=== PATIENT | female | born 1990 | race Caucasian/White ===

== ENCOUNTER 2024-09-28 13:46 | Outpatient (OUT) | payer OTHER, SELFPAY ==
--- OUTSIDE RECORDS SUMMARY | 2008-06-03 04:30 | XMS_ITS | Continuity of Care Document ---
Author Organization [facility] Address [address] [place] [address] Phone Care Team Providers Care Manager Recruiting Name Role Phone Unavailable Unavailable Unavailable Procedures Procedure Date OFFICE/OUTPATIENT VISIT, EST URINE TEST OFFICE/OUTPATIENT VISIT, EST URINE TEST Advance Directives Directive Yes / No Effective Date File Name No Information Encounters Encounter Description Practice Location Reason(s) For Visit Diagnoses Date Provider Providers Copied on Encounter OFFICE/OUTPAT IENT VISIT, EST [facility], [address] [place], [place], [id number], [place] tel:[phone] [facility] No Information No Information Family History Family Member Type Diagnosis Age At Onset No Information Payers Payer name Insurance type Covered libertarian ID Authoriza tion(s) No Information Social History Type Description Quantity Date Captured Comments Sex Female Smoking Status No Information Sexual Orientation Straight or heterosexual Gender Identity Female Chief Complaint And Reason For Visit No Information Reason For Referral Reason For Referral No Information History Of Present Illness Encounter Date Complaint History Of Prese nt Illness No Information Functional Status Date Functional Assessmen t No Information Instructions Date Instruction Additional Infor mation No Information Assessments Type Assessment Date No Information Patient Care Teams Name Effective Dates (start - stop) Status Members No Information
--- OUTSIDE RECORDS SUMMARY | 2024-09-14 10:00 | XMS_ITS | Encounter Summary ---
Author Organization [employer] [facility] Address [id number] [address] [place] [address] Care Team Providers Care Clinic Charge Nurse Name Role Phone Florin Vazquez DO Primary Care Provider [phone] Encounter Details Date Type Department Care Team (Latest Contact Info) Description 09/14/2024 10:00 AM EDT Visit [facility] [address] [place] [address] Amy Cates APRN-CNM [address] [facility] [place] [address] Routine follow-up (Primary Dx); S/P repeat low transverse ; Status post bilateral salpingectomy; Bilateral leg edema Social History Tobacco Use Types Packs/Day Years Used Date Smoking Tobacco: Former Cigarettes Q uit: 05/30/2024 Smokeless Tobacco: Never Alcohol Use Standard Drinks/Week Comments Not Currently 0 (1 standard drink = 0.6 oz pur e alcohol) [facility] Utilities Answer Date Recorded In the past 12 months has [employer] electric, gas, oil, or water company threatened to shut off services in your home? No 09/07/2024 Social Connection and Isolation Panel [NHANES] A nswer Date Recorded In a typical week, how many times do you talk on the phone with family, friends, or neighbors? Twice a week 09/07/2024 How often do you get together with friends or re latives? Twice a week 09/07/2024 How often do you attend holiness or orthodox serv ices? Never 09/07/2024 Do you belong to any clubs o r organizations such as holiness groups, unions, fraternal or athletic groups, or school groups? No 09/07/2024 How often do you attend meet ings of the clubs or organizations you belong to? Never 09/07/2024 Are you , , di vorced, , never , or living with a partner? Never 09/07/2024 AUDIT-C Answer Date Recorded Q1: How often do you have a drink containing alcohol? Never 08/31/2024 Q2: How many drinks containi ng alcohol do you have on a typical day when you are drinking? Patient does not drink Q3: How often do you have si x or more drinks on one occasion? Never 08/31/2024 Overall Financial Resource Strain (CARDIA) Answe r Date Recorded How hard is it for you to pa y for the very basics like food, housing, medical care, and heating? Not very hard 09/07/2024 PHQ-2 Answer Date Recorded Total Score 0 09/07/2024 [facility] - Occupational Stress Questionnaire Answer Date Recorded Do you feel stress - tense, restless, nervous, or anxious, or unable to sleep at night because your mind is troubled all the time - these days? To some extent 09/07/2024 Exercise Vital Sign Answer Date Recorde d On average, how many days pe r week do you engage in moderate to strenuous exercise (like a brisk walk)? 0 days 09/07/2024 On average, how many minutes do you engage in exercise at this level? 0 min 09/07/2024 PRAPARE - Transportation Answer Date Re corded In the past 12 months, has l ack of transportation kept you from medical appointments or from getting medications? No 08/23 In the past 12 months, has l ack of transportation kept you from meetings, work, or from getting things needed for daily living? No 09/07/2024 [place] Depression Scale Answer Date Recorded [place] Depression Scale Total 4 09/14/2024 The thought of harming myself has occurred to me . Never 09/14/2024 Housing Instability Answer Date Recorde d Are you worried or concerned that in the next two months you may not have stable housing that you own, rent or stay in as a part of a household? No 09/07/2024 Childcare Answer Date Recorded Do problems getting child ca re make it difficult for you to work or study? No 09/07/2024 Employment Answer Date Recorded Do you need help finding a [facility] career center and/or a training program? No 09/07/2024 Hunger Screening Answer Date Recorded Within the past 12 months we worried whether our food would run out before we got money to buy more. Never True 09/14/2024 Within the past 12 months th e food we bought just didn't last and we didn't have money to get more. Never True 09/14/2024 Purpose - Life Answer Date Recorded I have a purpose and direction in my life. Agree 09/07/2024 Comments No Sex and Gender Information Value Date Recorded Sex Assigned at Not on file Legal Sex Female 1:57 PM EST Gender Identity Not on file Sexual Orientation Not on file documented as of this encounter Last Filed Vital Signs Vital Sign Reading Time Taken Comments Blood Pressure 120/68 09/14/2024 10:15 AM EDT Pulse - - Temperature - - Respiratory Rate - - Oxygen Saturation - - Inhaled Oxygen Concentration - - Weight 64.9 kg (143 lb) 09/14/2024 10:15 AM EDT Height 165.1 cm (5' 5 ) 09/14/2024 10:15 AM EDT Body Mass Index 23.8 09/14/2024 10:15 AM EDT documented in this encounter Progress Notes * LONNIE Azevedo - 09/14/2024 10:00 AM EDT Visit Subjective: HPI Jeannine Johnson is a 34 y.o. female who presents for a 1 week visit and incision check. She delivery Baby Girl Martha via repeat low transverse section with bilateral salpingectomy on 09/07/[address] Solorio. She reports that overall she is doing well but has noticed an increased amount of lower leg swelling. States that the swelling is worse the longer she is up and about. Deneis headache, visual changes and epigastric pain. She reports her mood is happy. No homicidal or suicidal ideations. EPDS: 4 She is bottlefeeding every 3-4 hours. Denies breast complaints today. She reports that her lochia light, rubra and without clots. She has not resumed intercourse. The following portions of the patient's history were reviewed and updated as appropriate: allergies, current medications, past family history, past medical history, past social history, past surgicalhistory and problem list. Review of Systems Pertinent items are noted in HPI. Objective: BP 120/68 Ht 165.1 cm (5' 5 ) Wt 64.9 kg (143 lb) LMP (LMP Unknown) No BMI 23.80 kg/m?? General: alert, appears stated age and cooperative Cardiovascular: RRR Respiratory: Bilateral lungs clear to ascultation, no rhonchi, rales or wheezes Breasts: exam deferred Abdomen soft, non-tender; bowel sounds normal; no masses Incision: healing well without erythema/drainage/discharge Lower extremities: +2 edema of bilateral ankles and feet. No pain or tenderness noted. Bilateral pedal pulses palpated. Assessment: Diagnoses and all orders for this visit: Routine follow-up S/P repeat low transverse Status post bilateral salpingectomy Bilateral leg edema Plan: Discussed adequate water intake (6-8 bottles of water daily) and compression stockings to help reduce lower leg edema No issues with blood pressure but they have a cuff at home. Discussed checking daily and reporting BPs >/=140/90 to office. Continue plan Continue to abstain from intercourse until seen at 6 wk visit. Continue to monitor mood changes. Continue to monitor for s/s of infection. Return for PP care in 1 week to follow up with lower leg edema or sooner if worsening despite adequate water and compression stockings. - LONNIE Azevedo 09/14/24 10:44 AM LONNIE Azevedo 09/14/24 1044 documented in this encounter Plan of Treatment Upcoming Encounters Date Type Department Care Team (Late st Contact Info) Description 10/18/2024 1:15 PM EDT Visit [facility] [address] [place] [id number] Lorna Murray, PLACEMENT DIRECTOR-VEHICLE CALIBRATION ENGINEER [address] [facility] [address] [place] [address] documented as of this encounter Visit Diagnoses Diagnosis Routine follow-up- Primary S/P repeat low transverse Status post bilateral salpingectomy Bilateral leg edema Edema documented in this encounter Additional Health Concerns Assessment Noted Time PHQ-9 Depression Total Score: 0 09/08/19 11:42 AM EDT documented as of this encounter Care Teams Clinic Charge Nurse Relationship Specialty Start Date End Date Florin Vazquez DO [address] [place] [address] [place] [address] [place] [address] PCP - General Family Medicine 07/26/24 documented as of this encounter
--- OUTSIDE RECORDS SUMMARY | 2024-09-20 15:00 | XMS_ITS | Encounter Summary ---
Author Organization [facility] Address [id number] [address] [place] [address] Care Team Providers Care Triage Licensed Practical Nurse Name Role Phone Florin Vazquez DO Primary Care Provider Reason for Visit * Reason Comments Care PP 13 days. Pt had i ncreased swelling at last PP visit, Minimal swelling today. Pt denies pain or any concerns, mild vag bleeding. Encounter Details Date Type Department Care Team (Late st Contact Info) Description 09/20/2024 3:00 PM EDT Visit [facility] [address] [place] [address] Lorna Murray, SENIOR SOFTWARE DEVELOPER-PHYSICIAN ASSISTANT CERTIFIED [address] [facility] [address] [place], [place] [id number] care following delivery (Primary Dx) Social History Tobacco Use Types Packs/Day Years Used Date Smoking Tobacco: Former Cigarettes Q uit: 05/30/2024 Smokeless Tobacco: Never Alcohol Use Standard Drinks/Week Comments Not Currently 0 (1 standard drink = 0.6 oz pur e alcohol) [facility] Utilities Answer Date Recorded In the past 12 months has e electric, gas, oil, or water company threatened [...] week 09/07/2024 How often do you attend roman catholic or hinduism serv ices? Never 09/07/2024 Do you belong to any clubs o r organizations such as roman catholic groups, unions, fraternal or athletic groups, or [...] Answer Date Recorded Total Score 0 09/07/2024 [facility] of Occupat ional Health - Occupational Stress [...] things needed for daily living? No 09/07/2024 [place] Depression Scale Answer Date Recorded [place] Depression Scale Total 3 09/20/2024 The thought of harming myself has occurred to me . Never 09/20/2024 Housing Instability Answer Date Recorde d Are [...] Recorded Do you need help finding a [facility] career center and/or a training program? No 09/07/2024 Hunger Screening Answer Date Recorded Within the past 12 months we worried whether our food would run out before we got money to buy more. Never True 09/20/2024 Within the past 12 months th e food we bought just didn't last and we didn't have money to get more. Never True 09/20/2024 Purpose - Life Answer Date Recorded I [...] Sign Reading Time Taken Comments Blood Pressure 116/70 09/20/2024 3:10 PM EDT Pulse - - Temperature - - Respiratory Rate - - Oxygen Saturation - - Inhaled Oxygen Concentration - - Weight 62.1 kg (137 lb) 09/20/2024 3:10 PM EDT Height 162.6 cm (5' 4 ) 09/20/2024 3:10 PM EDT Body Mass Index 23.52 09/20/2024 3:10 PM EDT documented in this encounter Progress Notes * Lorna Murray APRN-ALENA - 09/20/2024 3:00 PM EDT Images from the original note were not included. office visit 09/20/2024 Subjective: Jeannine Johnson is a 34 y.o. female who presents for a follow up visit. Jeannine is doing very well and her swelling has resolved. She has checked her BP at home and it has been normal.She has no breast concerns, eating and drinking well, normal bowel function. She denies pain and her bleeding is light. She delivered via repeat low transverse delivery on 09/07/2024 at 39w1d of Female . Desired contraception method: Had salpingectomy . depression screening: negative. EPDS = 3 The following portions of the patient's history were reviewed and updated as appropriate: allergies, current medications, past family history, past medical history, past social history, past surgicalhistory, problem list, and medication reconciliation was completed including current medication andpost discharge medication. Review of Systems Pertinent items are noted in HPI. Objective: BP 116/70 Ht 162.6 cm (5' 4 ) Wt 62.1 kg (137 lb) LMP (LMP Unknown) No BMI 23.52 kg/m?? Physical Exam Vitals and nursing note reviewed. Constitutional: General: She is not in acute distress. Appearance: Normal appearance. She is not ill-appearing. HENT: Head: Normocephalic and atraumatic. Nose: No rhinorrhea. Eyes: Extraocular Movements: Extraocular movements intact. Pulmonary: Effort: Pulmonary effort is normal. No respiratory distress. Abdominal: General: There is no distension. Palpations: Abdomen is soft. Tenderness: There is no abdominal tenderness. There is no guarding. Genitourinary: General: Normal vulva. Musculoskeletal: General: Normal range of motion. Cervical back: Normal range of motion. Right lower leg: No edema. Left lower leg: No edema. Skin: General: Skin is warm and dry. Neurological: General: No focal deficit present. Mental Status: She is alert. Psychiatric: Mood and Affect: Mood normal. Behavior: Behavior normal. Thought Content: Thought content normal. Judgment: Judgment normal. Lab Results Component Value Date HGB 8.2 (L) 09/08/2024 Assessment and Plan: 34 y.o. female s/p 1. care following delivery (Primary) Continue pelvic rest and lifting restrictions Reviewed warning signs RTO in 4 weeks, sooner if needed MADHAVI Lozano 09/20/24 1543 documented in this encounter Plan of Treatment Upcoming Encounters Date Type Department Care Team (Late st Contact Info) Description 10/18/2024 1:15 PM EDT Visit [facility] [address] [place] [phone] Lorna Murray, SENIOR SOFTWARE DEVELOPER-PHYSICIAN ASSISTANT CERTIFIED [address] [facility] [address] [place], [place] [phone] documented as of this encounter Visit Diagnoses Diagnosis care following delivery- Primary documented in this encounter Additional Health Concerns Assessment Noted Time PHQ-9 Depression Total Score: 0 09/08/19 11:42 AM EDT documented as of this encounter Care Teams Triage Licensed Practical Nurse Relationship Specialty Start Date End Date Florin Vazquez DO [address] [place] [address] [place] [address] PCP - General Family Medicine 07/26/24 documented as of this encounter
--- OUTSIDE RECORDS SUMMARY | 2024-09-28 13:49 | XMS_ITS | Encounter Summary ---
Author Organization [employer] [facility] [employer] Address [id number] [address] [place] [address] Care Team Providers Care Finisher Hand Name Role Phone Florin Vazquez Dia WALTERS Primary Care Provider [phone] Encounter Details Date Type Department Care Team (Late Contact Info) Description 07/03/2020 Orders Only [facility] Family Medicine [address] [place] [id number] Bertha Gusman, CONSULTANT EDUCATION-DISCHARGE PLANNER [address] [place] [address] Social History Tobacco Use Types Packs/Day Years Used Date Smoking Tobacco: Never Assessed Childcare Answer Date Recorded Childcare Unknown 07/02/2020 Employment Answer Date Recorded Employment Unknown 07/02/2020 Purpose - Life Answer Date Recorded Purpose and direction in life Unknown Comments Unknown Sex and Gender Information Value Date Recorded Sex Assigned at Not on file Legal Sex Female 1:57 PM EST Gender Identity Not on file Sexual Orientation Not on file documented as of this encounter Plan of Treatment Upcoming Encounters Date Type Department Care Team (Late st Contact Info) Description 10/18/2024 1:15 PM EDT Visit [facility] [address] [place] [phone] Lorna Murray, CONSULTANT EDUCATION-DISCHARGE PLANNER [address] [place] [address] documented as of this encounter Visit Diagnoses Not on filedocumented in this encounter Care Teams Finisher Hand Relationship Specialty Start Date End Date Florin Vazquez DO [address] [place] [address] PCP - General Family Medicine 07/26/24 documented as of this encounter
--- OUTSIDE RECORDS SUMMARY | 2024-09-28 13:49 | XMS_ITS | Clinical Summary ---
Author Organization [facility] Address [address] [place] [address] Care Team Providers Care Human Resources Communications Manager Name Role Phone Florin Vazquez DO Unavailable Florin Vazquez DO Primary Care Provider [phone] Allergies No known active allergies Medications Aspirin-Acetami nophen-Caffeine (EXCEDRIN MIGRAINE) 250-250-65 mg per tablet Take 1 tablet by mouth every 6 hours as needed. Active nortriptyline (PAMELOR) 10 mg capsule Take 1 capsule by mouth daily at bedtime. 30 capsule 5 08/06/2016 Active Active Problems Problem Noted Date Diagnosed Date Tobacco smoking complicating in third trimester 05/27/2016 IUGR (intrauterine growth re striction) affecting care of mother 05/27/2016 Social History Tobacco Use Types Packs/Day Years Used Date Smoking Tobacco: Former Cigarettes Q uit: 05/26/2016 Tobacco Cessation:Ready to Q uit: No; Counseling Given: No Alcohol Use Standard Drinks/Week Comments No 0 (1 standard drink = 0.6 oz pur e alcohol) Comments Unknown Sex and Gender Information Value Date Recorded Sex Assigned at Not on file Legal Sex Female 9:22 AM EST Gender Identity Not on file Sexual Orientation Not on file Last Filed Vital Signs Vital Sign Reading Time Taken Comments Blood Pressure 127/106 08/06/2016 9:21 AM EDT Pulse 70 08/06/2016 9:21 AM EDT Temperature - - Respiratory Rate - - Oxygen Saturation - - Inhaled Oxygen Concentration - - Weight 58.5 kg (129 lb) 08/06/2016 9:21 AM EDT Height 157.5 cm (5' 2 ) 08/06/2016 9:21 AM EDT Body Mass Index 23.59 08/06/2016 9:21 AM EDT Plan of Treatment Health Maintenance Due Date Last Done Comments Anxiety Screening 2008 Depression Screening 2008 HIV Screening 2008 Hepatitis C Screening 2008 DTaP,Tdap,Td Vaccine (1 - Tdap) 2009 Hepatitis B Vaccine (1 of 3 - 19+ 3-dose series) 05/11 Cervical Cancer Screening 2011 Covid-19 Vaccine ( - 2023- season) 2023 Influenza Vaccine (Season Ended) 2024 Insurance [employer] ACC[employer] PPO Care Teams Human Resources Communications Manager Relationship Specialty Start Date End Date Florin Vazquez DO [address] [place] [address] PCP - General Family Medicine 07/28/16 Florin Vazquez DO [address] [place] [address] Family Medicine 07/15/16
--- OUTSIDE RECORDS SUMMARY | 2024-09-28 13:50 | XMS_ITS | Encounter Summary ---
Author Organization [employer] [facility] Address [id number] [address] [place] [address] Care Team Providers Care Gunstock Spray Unit Adjuster Name Role Phone Florin Vazquez DO Primary Care Provider [phone] Encounter Details Date Type Department Care Team (Latest Contact Info) Description 09/20/2024 Travel Social History Tobacco Use Types Packs/Day Years Used Date Smoking Tobacco: Former Cigarettes Q uit: 05/30/2024 Smokeless Tobacco: Never Alcohol Use Standard Drinks/Week Comments Not Currently 0 (1 standard drink = 0.6 oz pur e alcohol) [facility] Utilities Answer Date Recorded In the past 12 months has [employer] electric, gas, oil, or water company threatened [...] week 09/07/2024 How often do you attend confucianist or religion serv ices? Never 09/07/2024 Do you belong to any clubs o r organizations such as confucianist groups, unions, fraternal or athletic groups, or [...] Answer Date Recorded Total Score 0 09/07/2024 [facility] of Occupat ional Health - Occupational Stress [...] things needed for daily living? No 09/07/2024 [place] Depression Scale Answer Date Recorded [place] Depression Scale Total 3 09/20/2024 The thought [...] Recorded Do you need help finding a [facility] and/or a training program? No [...] EDT Visit [facility] [address] [place] [phone] Lorna Murray, COPRA SAMPLER-AUDIO VISUAL PROJECT MANAGER [address] [facility] [address] [place], [place] [phone] documented as of this encounter Visit Diagnoses Not on filedocumented in this encounter Additional Health Concerns Assessment Noted Time PHQ-9 Depression Total Score: 0 09/08/19 11:42 AM EDT documented as of this encounter Care Teams Gunstock Spray Unit Adjuster Relationship Specialty Start Date End Date Florin Vazquez DO [address] [place] [address] [place] [address] PCP - General Family Medicine 07/26/24 documented as of this encounter
--- OUTSIDE RECORDS SUMMARY | 2024-09-28 13:50 | XMS_ITS | Encounter Summary ---
Author Organization [facility] Address [id number] [address] [place] [address] Care Team Providers Care Day Guard Name Role Phone Florin Vazquez DO Primary Care Provider [phone] Encounter Details Date Type Department Care Team (Latest Contact Info) Description 09/14/2024 Travel Social History Tobacco Use Types Packs/Day Years Used Date Smoking Tobacco: Former Cigarettes Q uit: 05/30/2024 Smokeless Tobacco: Never Alcohol Use Standard Drinks/Week Comments Not Currently 0 (1 standard drink = 0.6 oz pur e alcohol) [place] Utilities Answer Date Recorded In the past 12 months has [employer] electric, gas, oil, or water company threatened [...] week 09/07/2024 How often do you attend denominational or mandaeism serv ices? Never 09/07/2024 Do you belong to any clubs o r organizations such as denominational groups, unions, fraternal or athletic groups, or [...] Answer Date Recorded Total Score 0 09/07/2024 [facility] - Occupational Stress [...] things needed for daily living? No 09/07/2024 [place] Depression Scale Answer Date Recorded [place] Depression Scale Total 4 09/14/2024 The thought [...] Recorded Do you need help finding a [facility] and/or a training program? No [...] EDT Visit [facility] [address] [place] [id number] Lorna Murray, CUSHION PADDER-AD OPERATIONS SPECIALIST [id number] [facility] , [address] [place], [place] [id number] documented as of this encounter Visit Diagnoses Not on filedocumented in this encounter Additional Health Concerns Assessment Noted Time PHQ-9 Depression Total Score: 0 09/08/19 11:42 AM EDT documented as of this encounter Care Teams Day Guard Relationship Specialty Start Date End Date Florin Vazquez DO [address] [place] [address] [place] [address] PCP - General Family Medicine 07/26/24 documented as of this encounter
--- OUTSIDE RECORDS SUMMARY | 2024-09-28 13:50 | XMS_ITS | Clinical Summary ---
Author Organization [facility] Address [address] [place] [address] Care Team Providers Care Defense Attorney Name Role Phone Unavailable Primary Care Provider Unavailabl e Encounters Date Type Department Care Team Description 08/28/2024 Telephone [facility] [address] [place] [address] Mariza Ricci CNM from Last 3 Months Social History Tobacco Use Types Packs/Day Years Used Date Smoking Tobacco: Never Assessed Comments Unknown Sex and Gender Information Value Date Recorded Sex Assigned at Not on file Legal Sex Female 7:09 PM EDT Gender Identity Not on file Sexual Orientation Not on file Plan of Treatment Not on file
--- OUTSIDE RECORDS SUMMARY | 2024-09-28 13:50 | XMS_ITS | Clinical Summary ---
Author Organization [employer] [facility] Address [id number] [address] [place] [address] Care Team Providers Care Wood Gluer Name Role Phone Florin Vazquez DO Primary Care Provider [phone] Allergies No known active allergies Medications docusate sodium (COLACE) 100 mg capsuleIndicatio ns:Constipation, unspecified constipation type Take 1 capsule (100 mg total) by mouth in the morning and 1 capsule (100 mg total) before bedtime. Do all this for 30 days. 60 capsule 09/12/19 25 Active Additional Information Patient not taking.Reported on 09/20/2024 ferrous sulfate 325 (65 FE) MG tabletIndication s:Anemia, Take 1 tablet (325 mg total) by mouth in the morning and 1 tablet (325 mg total) in the evening. Take with meals. 60 tablet 09/12/19 25 Active vit no.124/iron/foli c ( VITAMIN ORAL) Take by mouth. Discontinu ed(Stop Taking at Discharge) docusate sodium (COLACE) 100 mg capsule Take 1 capsule (100 mg total) by mouth in the morning and 1 capsule (100 mg total) before bedtime. Do all this for 30 days. 60 capsule 09/11/19 25 025 Discontinu ed(Reorder ) ferrous sulfate 325 (65 FE) MG tablet Take 1 tablet (325 mg total) by mouth in the morning and 1 tablet (325 mg total) in the evening. Take with meals. 60 tablet 09/11/19 25 025 Discontinu ed(Reorder ) ibuprofen (MOTRIN) 800 mg tabletIndication s:Delivery of by section Take 1 tablet (800 mg total) by mouth every 8 (eight) hours as needed for pain for up to 10 days. 30 tablet 09/11/19 25 025 Discontinu ed(Reorder ) ibuprofen (MOTRIN) 800 mg tabletIndication s:Delivery of by section Take 1 tablet (800 mg total) by mouth every 8 (eight) hours as needed for pain for up to 10 days. 30 tablet 09/12/19 25 025 Additional Information Patient not taking.Reported on 09/20/2024 Active Problems Problem Noted Date Diagnosed Date Status post bilateral salpingectomy 09/14/2024 Resolved Problems Problem Noted Date Diagnosed Date Resolved Date H/O section 09/07/2024 Delivery of by section 09/07/2024 09/14/2024 Status post tubal ligation a t time of delivery, current hospitalization 09/07/20242024 Syncope 07/26/2024 09/14/2024 Overview (07/26/2024): Pt incarcerated. Fell and hit head on concrete Request for sterilization 07/26/2024 Incarceration 07/12/2024 09/10/2024 Hepatitis C virus infection in mother during 07/12/2024 09/10/2024 History of prior with IUGR 09/10/2024 History of delivery , currently 06/28/2024 09/10/2024 History of illicit drug use 06/28/2024 09/10/2024 Overview (06/28/2024): Meth, stopped in May 2024 when incarcerated. Late care 06/28/2024 Encounters Date Type Department Care Team Description 09/20/2024 3:00 PM EDT Visit [facility] [address] [place] [address] Lorna Murray, TRACK LAYING EQUIPMENT OPERATOR-FLAT OPTICAL ELEMENT MAKER care following delivery (Primary Dx) 09/20/2024 Travel 09/19/2024 Telephone [facility] Obstetric[facility]/Gynecol daksha [address] [place] [address] Paola Desai MA 09/14/2024 10:00 AM EDT Visit [facility]/Gynecol daksha [address] [place] [address] Amy Cates APRN-BRENDAM Routine follow-up (Primary Dx); S/P repeat low transverse ; Status post bilateral salpingectomy; Bilateral leg edema 09/14/2024 Travel 09/11/2024 Orders Only [facility] [address] [place] [address] Carlie Mac, TRACK LAYING EQUIPMENT OPERATOR-BRENDAM Anemia affecting , antepartum (Primary Dx); Delivery of by section; Anemia, ; Constipation, unspecified constipation type 09/07/2024 1:15 PM EDT Anesthesia Event [facility] [address] [place] [address] Franck Florez DO 09/07/2024 1:00 PM EDT - 09/07/2024 3:00 PM EDT Surgery [facility] [address] [place] [address] Danette Solorio MD REPEAT TUBAL LIGATION 09/07/2024 11:02 AM EDT - 09/10/2024 5:10 PM EDT Hospital Encounter [facility] [address] [place] [address] Danette Solorio MD Delivery of by section (Primary Dx); Late care; Hepatitis C virus infection in mother during ; History of prior with IUGR ; History of delivery, currently ; History of illicit drug use Discharge Disposition: Home 09/07/2024 Travel 09/06/2024 10:38 AM EDT - 09/06/2024 11:59 PM EDT Hospital Encounter [facility] - Ultrasound [address] [place] [address] Debra Jones APRN-FLAT OPTICAL ELEMENT MAKER Late care Discharge Disposition: Home 09/05/2024 1:00 PM EDT Routine [facility] [place] [address] [place] [address] Lorna Murray APRN-FLAT OPTICAL ELEMENT MAKER GA: 38w6d 09/05/2024 Travel 08/31/2024 11:12 AM EDT - 08/31/2024 12:57 PM EDT Hospital Encounter [facility] - LDRP [address] [facility] [facility] [address] Danette Solorio MD Late care; Hepatitis C virus infection in mother during ; History of prior with IUGR ; History of delivery, currently ; Incarceration; History of illicit drug use Discharge Disposition: Home 08/31/2024 10:45 AM EDT Routine [facility] [place] [address] [place] [address] Lorna Murray APRN-FLAT OPTICAL ELEMENT MAKER GA: 38w1d 08/31/2024 Travel 08/30/2024 10:23 AM EDT - 08/30/2024 11:59 PM EDT Hospital Encounter [facility] - Ultrasound [address] [place] [address] Debra Jones APRN-FLAT OPTICAL ELEMENT MAKER Late care Discharge Disposition: Home 08/30/2024 Travel 08/24/2024 1:30 PM EDT - 08/24/2024 11:59 PM EDT Hospital Encounter [facility] [address] [place] [address] Josue Camarillo MD History of prior with IUGR ; History of delivery, currently ; History of illicit drug use; Late care Discharge Disposition: Home 08/23/2024 10:42 AM EDT - 08/23/2024 11:59 PM EDT Hospital Encounter [facility] - Ultrasound [address] [place] [address] Debra Jones, TRACK LAYING EQUIPMENT OPERATOR-FLAT OPTICAL ELEMENT MAKER Late care Discharge Disposition: Home 08/23/2024 10:00 AM EDT Routine [facility] Obstetrics/[place] [address] Carlie Mac, TRACK LAYING EQUIPMENT OPERATOR-CN GA: 37w0d 08/23/2024 Travel 08/21/2024 3:47 PM EDT - 08/21/2024 5:40 PM EDT Hospital Encounter [facility] - [facility] [address] [place] [address] Danette Solorio MD Fries, Kathleen S, TRACK LAYING EQUIPMENT OPERATOR-BRENDA Late care; Hepatitis C virus infection in mother during ; History of prior with IUGR ; History of delivery, currently ; Incarceration; History of illicit drug use Discharge Disposition: Home 08/16/2024 10:20 AM EDT - 08/16/2024 11:59 PM EDT Hospital Encounter [facility] - Ultrasound [address] [place] [address] Debra Jones, TRACK LAYING EQUIPMENT OPERATOR-FLAT OPTICAL ELEMENT MAKER Late care Discharge Disposition: Home 08/15/2024 Telephone [facility]/[place] [address] Danette Solorio MD 08/14/2024 10:30 AM EDT Routine [facility] [address] Danette Solorio MD GA: 35w5d 08/14/2024 Travel 08/09/2024 10:00 AM EDT - 08/09/2024 11:59 PM EDT Hospital Encounter [facility] - Ultrasound [address] [place] [address] Debra Jones, TRACK LAYING EQUIPMENT OPERATOR-ALENA Late care Discharge Disposition: Home 08/09/2024 Travel 08/02/2024 11:00 AM EDT - 08/02/2024 11:59 PM EDT Hospital Encounter [facility] - Ultrasound [address] [place] [address] Debra Jones, TRACK LAYING EQUIPMENT OPERATOR-FLAT OPTICAL ELEMENT MAKER Late care Discharge Disposition: Home 08/02/2024 Travel 07/27/2024 Telephone [facility] Obstetrics/Gynecol ogjosefa [address] [place] [address] Alicia García LPN [facility] 07/26/2024 11:15 AM EDT Routine [facility] Obstetric[facility]/[place] [address] Lorna Murray, TRACK LAYING EQUIPMENT OPERATOR-FLAT OPTICAL ELEMENT MAKER GA: 33w0d 07/26/2024 10:28 AM EDT - 07/26/2024 11:59 PM EDT Hospital Encounter [facility] - Ultrasound [address] [place] [address] Debra Jones, TRACK LAYING EQUIPMENT OPERATOR-FLAT OPTICAL ELEMENT MAKER Late care Discharge Disposition: Home 07/26/2024 9:24 AM EDT - 07/26/2024 10:15 AM EDT Hospital Encounter [facility] [address] [place] [address] Isis Partida, TRACK LAYING EQUIPMENT OPERATOR-Simon Patterson MD Late care; Hepatitis C virus infection in mother during ; History of prior with IUGR ; History of delivery, currently ; Incarceration; History of illicit drug use Discharge Disposition: Home 07/26/2024 7:16 AM EDT - 07/26/2024 9:20 AM EDT Emergency [facility] - Emergency [address] [place] [address] Jaron Gaines, Syncope, unspecified syncope type (Primary Dx); Minor head injury, initial encounter Discharge Disposition: Home 07/26/2024 Travel 07/18/2024 8:45 AM EDT Office Visit Maternal- Medicine at [facility] [address] [place] [address] Josue Camarillo MD History of prior with IUGR (Primary Dx); History of delivery, currently ; History of illicit drug use; Late care; Incarceration; Hepatitis C virus infection in mother during 07/18/2024 7:20 AM EDT - 07/18/2024 11:59 PM EDT Hospital Encounter [facility] - [facility] Imaging [address] [place] [address] Second trimester ; History of IUGR (intrauterine growth retardation) and stillbirth, currently , second trimester; 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[facility]); Late care Discharge Disposition: Home 07/18/2024 Orders Only [facility]Gynecol daksha [address] [place] [address] Debra Jones, TRACK LAYING EQUIPMENT OPERATOR-[facility] History of prior with IUGR (Primary Dx); Late care; Hepatitis C virus infection in mother during 07/18/2024 Telephone [facility] Obstetric[facility]/Gynecol daksha [address] [place] [address] Tawana Angel RN 07/18/2024 Orders Only [facility]- Medicine at [facility] [address] [place] [address] Darlyn Santos, RN History of prior with IUGR (Primary Dx); History of delivery, currently ; History of illicit drug use; Late care 07/18/2024 Orders Only [facility] Obstetrics/Gynecol [place] [address] Tawana Angel RN Late care (Primary Dx) 07/18/2024 Travel 07/12/2024 11:21 AM EDT - 07/12/2024 11:59 PM EDT Hospital Encounter [facility] - Ultrasound [address] [place] [address] Debra Jones, VENKATA-ALENA Second trimester Discharge Disposition: Home 07/12/2024 10:45 AM EDT Routine [facility] Obstetrics/Gynecol ogjosefa [address] [place] [address] Debra Jones, VENKATA-ALENA GA: 31w0d 07/12/2024 Travel 06/28/2024 11:40 PM EST - 06/28/2024 11:59 PM EST Hospital Encounter [facility] [address] [facility] [address] [place] [address] Second trimester Discharge Disposition: Home 06/28/2024 12:20 PM EST - 06/28/2024 11:39 PM EST Hospital Encounter [facility] - Lab [address] [place] [address] Second trimester ; Cervical smear, as part of routine gynecological examination Discharge Disposition: Home 06/28/2024 11:00 AM EST Initial [facility]/Gynecol ogjosefa [address] [place] [address] Debra Jones, TRACK LAYING EQUIPMENT OPERATOR-FLAT OPTICAL ELEMENT MAKER GA: 29w0d 06/28/2024 Travel from Last 3 Months Immunizations Immunization Administration Dates Next Due DTP 1990,1990,1990 DTaP 12/28/1995,01/17/1992 HiB 09/06/1991,02/01/1991,1990 ,1990 MMR 12/28/1995,09/06/1991 OPV 12/28/1995,01/17/1992,1990 ,1990 Family History Medical History Relation Name Comments Breast cancer Maternal Grandmother Relation Name Status Comments Maternal Grandmother Social History Tobacco Use Types Packs/Day Years Used Date Smoking Tobacco: Former Cigarettes Q uit: 05/30/2024 Smokeless Tobacco: Never Tobacco Cessation:Counseling Given: Not Answered Alcohol Use Standard Drinks/Week Comments Not Currently 0 (1 standard drink = 0.6 oz pur e alcohol) [facility] Utilities Answer Date Recorded In the past [...] week 09/07/2024 How often do you attend jewish or congregational serv ices? Never 09/07/2024 Do you belong to any clubs o r organizations such as jewish groups, unions, fraternal or athletic groups, or [...] Answer Date Recorded Total Score 0 09/07/2024 [facility] [place] of Occupat ional Health - Occupational Stress [...] things needed for daily living? No 09/07/2024 Gomer Depression Scale Answer Date Recorded Gomer Depression Scale Total 3 09/20/2024 The thought [...] Recorded Do you need help finding a [facility] career center and/or a training program? No [...] Pressure 116/70 09/20/2024 3:10 PM EDT Pulse 79 09/10/2024 1:22 PM EDT Temperature 36.7 C (98 F) 09/10/2024 1:22 PM EDT Respiratory Rate 16 09/10/2024 1:22 PM EDT Oxygen Saturation 100% 09/08/2024 8:12 PM EDT Inhaled Oxygen Concentration - - Weight 62.1 kg (137 lb) 09/20/2024 3:10 PM EDT Height 162.6 cm (5' 4 ) 09/20/2024 3:10 PM EDT Body Mass Index 23.52 09/20/2024 3:10 PM EDT Plan of Treatment Upcoming Encounters Date Type Department Care Team (Late st Contact Info) Description 10/18/2024 1:15 PM EDT Visit [facility] Ob[facility]/Gynecology [address] [place] [phone] Lorna Murray, TRACK LAYING EQUIPMENT OPERATOR-FLAT OPTICAL ELEMENT MAKER [address] [facility] [address] [place] [address] Health Maintenance Due Date Last Done Comments DTaP,Tdap and Td Vaccines (6 - Tdap) 2001 12/28/1995, 01/17/1992, 1990, Additional history exists Influenza Vaccine 12/24/2024 Tobacco Screening 09/14/2025 09/14/2024 Adult BMI Screening 09/20/2025 09/20/2024 Depression Screening 09/20/2025 09/20/2024, 09/08/19 25 Pap Smear 06/29/2027 06/28/2024, 06/28/2024 Medical Devices Not on file Procedures Procedure Name Priority Date/Time Associated Diagnosis Comments CBC (NO DIFF) Routine 09/08/2024 4:51 AM EDT EXTRA TUBES PST TOP Routine 09/08/2024 4 :45 AM EDT EXTRA TUBES Routine 09/08/2024 4:45 AM EDT PLACENTA PATHOLOGY EXAM Routine 09/07/2024 2:55 PM EDT SURGICAL PATHOLOGY Routine 09/07/2024 2: 11 PM EDT ANESTHESIA SPINAL BLOCK Routine 09/07/2024 1:26 PM EDT REPEAT TUBAL LIGATION 09/07/2024 1:17 PM EDT repeat Special Needs FA will be needed per Sean (verified on 08/27/24). EXTRA TUBES PST TOP Routine 09/07/2024 11:44 AM EDT CREATININE, SERUM Add-On 09/07/2024 11:44 AM EDT EXTRA TUBES Routine 09/07/2024 11:44 AM EDT TYPE AND SCREEN STAT 09/07/2024 11:43 AM EDT HEPATITIS C VIRUS QUANTITATIVE BY NAAT Add-On 09/07/2024 11:43 AM EDT CBC (NO DIFF) Routine 09/07/2024 11:43 AM EDT SYPHILIS TOTAL(UNKNOWN SYPHILIS STATUS) Routine 09/07/2024 11:43 AM EDT FENTANYL, URINE QUALITATIVE STAT 09/07/2024 11:37 AM EDT DRUG SCREEN, URINE Routine 09/07/2024 11:37 AM EDT US PREG LMTD 1 OR MORE FETUS Routine 09/06/2024 10:54 AM EDT Late care STREP B SCREEN Routine 08/31/2024 11:07 AM EDT 38 weeks gestation of screening for streptococcus B US PREG LMTD 1 OR MORE FETUS Routine 08/30/2024 10:41 AM EDT Late care US MFM OB FOLLOW-UP, 1 FETUS Routine 08/24/2024 2:18 PM EDT History of prior with IUGR History of delivery, currently History of illicit drug use Late care US PREG LMTD 1 OR MORE FETUS Routine 08/23/2024 11:13 AM EDT Late care US PREG LMTD 1 OR MORE FETUS Routine 08/16/2024 10:45 AM EDT Late care US PREG LMTD 1 OR MORE FETUS Routine 08/09/2024 10:29 AM EDT Late care US PREG LMTD 1 OR MORE FETUS Routine 08/02/2024 11:45 AM EDT Late care US PREG LMTD 1 OR MORE FETUS Routine 07/26/2024 11:00 AM EDT Late care POCT NURSING URINE MACROSCOPIC UA Routine 07/26/2024 8:[address] CERVICAL SPINE WO CONT STAT 07/26/2024 8:[address] BRAIN WO CONT STAT 07/26/2024 8:01 AM EDT TROPONIN I, HIGH SENSITIVITY STAT 07/26/2024 7:35 AM EDT BASIC METABOLIC PANEL STAT 07/26/2024 7:35 AM EDT CBC WITH AUTO DIFFERENTIAL STAT 07/26/2024 7:35 AM EDT ECG 12-LEAD STAT 07/26/2024 7:19 AM EDT US MFM COMPREHENSIVE ANATOMIC SURVEY Routine 07/18/2024 8:31 AM EDT Second trimester History of IUGR (intrauterine growth retardation) and stillbirth, currently , second trimester 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[facility]) Late care US PREG TRANSABD FU PER FETU STAT 07/12/2024 11:49 AM EDT Second trimester POCT , URINE (NUCG) Routine 06/28/2024 2:17 PM EST Missed menses TYPE AND SCREEN Routine 06/28/2024 1:30 PM EST Second trimester HEPATITIS C VIRUS QUANTITATIVE BY NAAT Routine 06/28/2024 1:30 PM EST CBC (NO DIFF) Routine 06/28/2024 1:30 PM EST Second trimester HIV 1&2 AB/AG SCREEN (P24 AG) Routine 06/28/2024 1:30 PM EST Second trimester RUBELLA IGG IMMUNE STATUS Routine 06/28/2024 1:30 PM EST Second trimester SYPHILIS TOTAL(UNKNOWN SYPHILIS STATUS) Routine 06/28/2024 1:30 PM EST Second trimester VARICELLA ZOSTER ANTIBODY, IGG Routine 06/28/2024 1:30 PM EST Second trimester HEPATITIS PANEL, ACUTE Routine 06/28/2024 1:30 PM EST Second trimester HCG-BETA, SERUM Routine 06/28/2024 1:30 PM EST Second trimester GLU 1H POST 50G LOAD Routine 06/28/2024 1:30 PM EST Second trimester DRUG SCREEN, URINE Routine 06/28/2024 11:48 AM EST Second trimester URINALYSIS Routine 06/28/2024 11:48 AM EST Second trimester URINE CULTURE Routine 06/28/2024 11:48 AM EST Second trimester PAP SMEAR Routine 06/28/2024 4:09 AM EST Second trimester Cervical smear, as part of routine gynecological examination HIGH RISK HPV W/PAOLA Routine 06/28/2024 4:09 AM EST Second trimester Cervical smear, as part of routine gynecological examination CHLAMYDIA/GONORRHOEA E BY PCR, FLUID Routine 06/28/2024 4:09 AM EST Second trimester Cervical smear, as part of routine gynecological examination from Last 3 Months Results * (ABNORMAL) CBC without diff (09/08/2024 4:51 AM EDT) Only the most recent of3 resultswithin the time period is included. WBC 12.8(H) 4 - 11 x10E9/L 09/08/2024 5:[address] [facility] RBC Count 2.70(L) 3.8 - 5.2 X10E12/L 09/08/2024 5:[address] [facility] Hemoglobin 8.2(L) 11.7 - 15.5 g/dL 09/08/2024 5:[address] [facility] Hematocrit 23.3(L) 35 - 47 % 09/08/2024 5:[address] [facility] MCV 87 80 - 100 fL 09/08/2024 5:[address] [facility] MCH 30.4 27 - 34 pg 09/08/2024 5:[address] [facility] MCHC 35.2 32 - 36 g/dL 09/08/2024 5:[address] [facility] RDW 13.6 11.5 - 15 % 09/08/2024 5:[address] [facility] Platelet Count 322 150 - 450 X10E9/L 09/08/2024 5:[address] [facility] MPV 8.6 7 - 12 fL 09/08/2024 5:[address] [facility] Blood Venous blood / Unknown 09/08/2024 4:51 AM EDT 09/08/2024 5:04 AM EDT us Pat Quispe TRACK LAYING EQUIPMENT OPERATOR-CNM LAB BLOOD ORDERABLES Fin al Result [address] [place] [address], [place] * PST TOP (09/08/2024 4:45 AM EDT) Only the most recent of2 resultswithin the time period is included. Extra Tube Auto Resulted 09/08/2024 6:[address] [facility] Blood Venous blood / Unknown 09/08/2024 4:45 AM EDT 09/08/2024 5:05 AM EDT us Danette Solorio MD LAB BLOOD ORDERABLES Final Res ult [address] [place] [address], [place] * Placental histology (09/07/2024 2:55 PM EDT) Case Report Surgical Pathology Report Case: [id number] Authorizing Provider: LONNIE England Collected: 09/07/2024 1455 Ordering Location: [facility] Received: 09/07/[address] [place] [address] Pathologist: Gino Geronimo MD Specimen: Placenta, Single 09/21/2024 10:23 AM [facility] Final Diagnosis Placenta, delivery: 516 g third trimester placenta with three-vessel umbilical cord. 09/21/2024 10:23 AM [facility] at 1023 EDT Gross Description Received in formalin labeled JOHNSON, placenta : Single MEMBRANES: Placenta Sac Rupture (cm from margin): 5 cm Color: peacock-brown, semitranslucent Other Characteristics: [No] Insertion Site: Marginal CORD: Appearance: Unremarkable Site of Insertion: Eccentric Length & Diameter (cm): 6 x 1.2 cm True Knots: No Number of vessels: Three GENERAL: Trimmed Weight (grams): 516 g Complete: Yes Size 1 x Size 2 x Size 3 (cm): 22 x 17.8 x 2.3 cm Accessory Lobe(s): No PLACENTAL DISK: Color of Surface: Blue-august Sub-amniotic Cyst: No Amnion Nodosum: No Subchorionic Fibrin: No Appearance of Cut Surface: [red-brown, spongy and unremarkable] Maternal floor: Unremarkable Retroplacental hematoma: No Cassettes: A Rolled membrane, two sections of cord B-D Core Carrier sections of placenta (4, ss, [id number], m5) MW 09/21/2024 10:23 AM EDT [facility] Clinical Information rpt section 09/21/2024 10:23 AM EDT [facility] Embedded Images 09/21/2024 10:23 AM EDT [facility] Tissue (Placenta, Single) 09/07/2024 2:55 PM EDT 09/07/2024 4:10 PM EDT Pat Quispe TRACK LAYING EQUIPMENT OPERATOR-CN PATHOLOGY/CYTOLOGY ORDER KISHA Final Result [facility] [address] [place] [address], [facility] [address] [place] [address], * Surgical Pathology (09/07/2024 2:11 PM EDT) Case Report Surgical Pathology Report Case: [id number] Authorizing Provider: Danette Solorio MD Collected: 09/07/2024 1411 Ordering Location: [facility] Received: 09/07/[address] [place] [address] Pathologist: Ashley Donladson MD Specimens: 1) - Fallopian Tube, Left, Left fallopian tube 2) - Fallopian Tube, Right, Right fallopian tube 09/20/2024 5:56 PM EDT [facility] Final Diagnosis 1. Left fallopian tube segment: Complete cross section of fallopian tube with fimbria. 2. Right fallopian tube segment: Complete cross section of fallopian tube with fimbria. 09/20/2024 5:56 PM EDT [facility] at 1756 EDT Gross Description 1. Received in formalin labeled JOHNSON, left fallopian tube is a fimbriated fallopian tube segment, 6.0 cm in length x 1.0 cm in diameter. The segment demonstrates a august-purple smooth and glistening serosa, and is sectioned to reveal a pinpoint lumen. The entire bisected fimbriated end of the segment and 2 cross-sections of the tube are submitted in a single cassette. (1,ss,[id number] 9-1, m2) SW 2. Received in formalin labeled JOHNSON, right fallopian tube is a fimbriated fallopian tube segment, 4.8 cm in length x 1.2 cm in diameter. The segment demonstrates a august-purple smooth and glistening serosa, and is sectioned to reveal a pinpoint lumen. The entire bisected fimbriated end of the segment and 2 cross-sections of the tube are submitted in a single cassette. (1,ss,[id number] 9-2, m2) SW 09/20/2024 5:56 PM EDT [facility] Embedded Images 09/20/2024 5:56 PM EDT [facility] Tissue Structure of left fallopian tube / Unknown 09/07/2024 2:11 PM EDT 09/07/2024 3:24 PM EDT Comment:Pre-op diagnosis: repeat Tissue specimen (specimen) Structure of right fallopian tube / Unknown 09/07/2024 2:12 PM EDT 09/07/2024 3:24 PM EDT Comment:Pre-op diagnosis: repeat Danette Solorio MD PATHOLOGY/CYTOLOGY ORDERABLES Final Result [facility] [address] [place] [address], [facility] [address] [place] [address], * Spinal Block (09/07/2024 1:26 PM EDT) Narrative Florin Rowan APRN-MOVERS - 09/07/2024 1:26 PM EDT DWAINE Ann 09/07/2024 1:27 PM Spinal Block Patient Location: OB Start Time: 09/07/2024 1:23 PM End Time: 09/07/2024 1:26 PM Reason for Block: Primary Anesthetic IV In situ: Peripheral General Information and Staff: Service Provider: DWAINE Ann Placed by: DWAINE Ann Checklist: Patient Identified, IV Checked, Site Marked, Risks and Benefits Discussed, Surgical Consent, Monitors and Equipment Checked, Pre-op Evaluation and Timeout Performed Fire Risk Assessment Score: 0 Patient Positioning and Technique: Patient Position: Sitting Prep: Betadine, Maximum Sterile Barriers Used and Patient Draped Monitoring: Heart Rate, Wire Wrapper Machine Operator, Continuous Pulse Ox and Blood Pressure Oxygen Source: Room Air Approach: Midline Location: L2-L3 Injection Technique: Single-Shot Placement Technique: Fairgarden Technique Dose: 2 mL Needle: Needle Type: Pencan/Atraucan Needle Gauge: 24 G Anesthesia Block Medication Given: kdksuxeotpk-inloegfc-babiu(PF) (MARCAINE SPINAL) 0.75 % (7.5 mg/mL) injection - intrathecal 1.6 mL - 09/07/2024 1:26:00 PM morphine PF (DURAMORPH) injection 1 mg/mL - intrathecal 0.15 mg - 09/07/2024 1:26:00 PM fentaNYL (SUBLIMAZE) injection - intrathecal 25 mcg - 09/07/2024 1:27:00 PM CSF Comment: Clear Free-Flowing CSF Assessment: Sensory Level: T6 Injection Assessment: No Paresthesia on Injection us Franck Miguelito Florez DO ANESTHESIA ORDERABLES Final R esult * Creatinine includes GFR, serum (09/07/2024 11:44 AM EDT) CREATININE 0.53 0.40 - 1.00 mg/dL 09/07/2024 2:[address] [facility] Comment:METHOD TRACEABLE TO IDMS STANDARD EGFR Non-Race Dependent >90 >=60 ml/min/1.7 3sq.m 09/07/2024 2:[address] [facility] Comment: Reported eGFR is based on the CKD-EPI 2020 equation that does not use a race coefficient. Blood Venous blood / Unknown 09/07/2024 11:44 AM EDT 09/07/2024 11:48 AM EDT Pat Quispe TRACK LAYING EQUIPMENT OPERATOR-CN LAB BLOOD ORDERABLES Fin al Result [facility] [address] [place] [address], [place] * Hepatitis C Virus Quantitative by NAAT (09/07/2024 11:43 AM EDT) Only the most recent of2 resultswithin the time period is included. HCV Interpretation Not Detected Not Detected 09/10/2024 10:24 AM EDT [facility] Blood Venous blood / Unknown 09/07/2024 11:43 AM EDT 09/07/2024 11:47 AM EDT Pat Quispe TRACK LAYING EQUIPMENT OPERATOR-[facility] LAB BLOOD ORDERABLES Fin al Result Performing Organization Address City/[facility]/ZIP Co de Phone Number [facility] [address] [place] [address], * Syphilis Total (Unknown Syphilis Status) (09/07/2024 11:43 AM EDT) Only the most recent of2 resultswithin the time period is included. Pathologist [facility] [place] SYPHILIS TOTAL <0.2 <=0.8 AI 09/07/2024 6:42 PM EDT [facility] Blood Venous blood / Unknown 09/07/2024 11:43 AM EDT 09/07/2024 11:47 AM EDT Narrative [facility] - 09/07/2024 6:42 PM EDT NON REACTIVE No serologic evidence of infection to Treponema pallidum. Repeat testing may be considered in patients with suspected acute or primary syphilis in 2 to 4 weeks. Pat Quispe TRACK LAYING EQUIPMENT OPERATOR-CN LAB BLOOD ORDERABLES Fin al Result [facility] [address] [place] [address], [place] [phone] * Type and screen (09/07/2024 11:43 AM EDT) Only the most recent of2 resultswithin the time period is included. ABO A 09/07/2024 12:[address] [facility] RH Positive 09/07/2024 12:[address] [facility] Antibody Screen Negative 09/07/2024 12:[address] [facility] Blood 09/07/2024 11:4 3 AM EDT 09/07/2024 11:47 AM EDT Pat Quispe APRN-[facility] BLOOD BANK TEST ORDERABL ES Edited Result - Final Performing Organization Address City/[facility]/ZIP Co de Phone Number [address] [place] [address], [address] [place] [address], [place] * Fentanyl, Urine Qualitative (09/07/2024 11:37 AM EDT) FENTANYL, URINE QUAL. Negative Negative 09/07/2024 6:04 PM EDT [facility] Urine Urine / Unknown 09/07/2024 1 1:37 AM EDT 09/07/2024 11:48 AM EDT Narrative [facility] - 09/07/2024 6:04 PM EDT Fentanyl screening cutoff = 5ng/ml This report is intended for use in clinical monitoring or management of patients. Pat Quispe TRACK LAYING EQUIPMENT OPERATOR-CN URINE ORDERABLES Final R esult [facility] [address] [place] [address], [place] [phone] * Drug Screen, Urine (09/07/2024 11:37 AM EDT) Only the most recent of2 resultswithin the time period is included. AMPHETAMINE/METHAMP Negative Negative 09/07 12:[address] [facility] Comment:AMPH/METH screening cut off = 1000 ng/mL COCAINE METABOLITE Negative Negative 2024 12:[address] [facility] Comment:Cocaine screening cu t off value = 300 ng/mL ECSTASY Negative Negative 09/07/2024 12:[address] [facility] Comment:Ecstasy screening cu t off value = 500 ng/mL METHADONE Negative Negative 09/07/2024 12:[address] [facility] Comment:Methadone screening cut off value = 300 ng/mL. OPIATES Negative Negative 09/07/2024 12:[address] [facility] Comment: Opiates screening cut off value = 300 ng/mL This test is used for the detection of codeine, hydrocodone (>1000 ng/mL), morphine and hydromorphone (>900 ng/mL) in urine. OXYCODONE Negative Negative 09/07/2024 12:[address] [facility] Comment: Oxycodone screening cut off value = 300 ng/mL This test is used for the detection of oxycodone and oxymorphone in urine. PHENCYCLIDINE Negative Negative 09/07/2024 12:[address] [facility] Comment:Phencyclidine screen ing cut off value = 25 ng/mL CANNABINOIDS Negative Negative 09/07/2024 12:[address] [facility] Comment:Cannabinoids/THC scr eening cut off value = 50 ng/mL Urine Barbiturates Negative Negative 2024 12:[address] [facility] Comment:Barbiturates screeni ng cut off value = 200 ng/mL BENZODIAZEPINES Negative Negative 12:[address] [facility] Comment:Benzodiazepines scre ening cut off value = 200 ng/mL Urine Urine specimen collection, clean catch / Unknown 09/07/2024 11:37 AM EDT 09/07/2024 11:48 AM EDT us Pat Quispe TRACK LAYING EQUIPMENT OPERATOR-CNM URINE ORDERABLES Final R esult [facility] [address] [place] [address], [place] * Ultrasound limited 1 or more fetus (09/06/2024 10:54 AM EDT) Only the most recent of7 resultswithin the time period is included. Anatomical Region Laterality Modality OB-BARK SCALER Ultrasound 09/06/2024 3:2 9 PM EDT Narrative 09/06/2024 3:29 PM EDT US PREG LMTD 1 OR MORE FETUS: 09/06/2024 10:39 AM Clinical: Late care. EXAM: DELON ONLY ULTRASOUND Real-time sonography performed for determination of amniotic fluid volume only. There is a single live intrauterine in a cephalic presentation with cardiac activity 137 beats per minute. Impression: Amniotic fluid index is 10.1 cm. Finalized by Hebert Badillo MD on 09/06/2024 3:29 PM Procedure Note Hebert Badillo MD - 09/06/2024 US PREG LMTD 1 OR MORE FETUS: 09/06/2024 10:39 AM Clinical: Late care. EXAM: DELON ONLY ULTRASOUND Real-time sonography performed for determination of amniotic fluid volumeonly. There is a single live intrauterine in a cephalic presentationwith cardiac activity 137 beats per minute. Impression: Amniotic fluid index is 10.1 cm. Finalized by Hebert Badillo MD on 09/06/2024 3:29 PM us Debra Jones TRACK LAYING EQUIPMENT OPERATOR-FLAT OPTICAL ELEMENT MAKER IMG US ORDERABLES Final Result * Strep B screen (08/31/2024 11:07 AM EDT) CULTURE RESULTS NEGATIVE FOR GROUP B STREPTOCOCCUS BY NUCLEIC ACID AMPLIFICATION 09/01/2024 10:30 PM EDT [facility] Swab (Vagina/Rectum) 08/31/2024 11:07 AM EDT 08/31/2024 11:07 AM EDT us Lrona Murray TRACK LAYING EQUIPMENT OPERATOR-FLAT OPTICAL ELEMENT MAKER MICROBIOLOGY - GENE RAL ORDERABLES Final Result [facility] [address] [place] [address], [place] [phone] * US MFM OB FOLLOW-UP, 1 FETUS (08/24/2024 2:18 PM EDT) Only the most recent of2 resultswithin the time period is included. Anatomical Region Laterality Modality OB-BARK SCALER Ultrasound 08/24/2024 1:53 PM EDT Narrative 08/24/2024 4:20 PM EDT NAME: FELIPA COY : 1990 SEX: F Accession Number: [id number] ORDERING PHYSICIAN: JOSUE CAMARILLO REFERRING PHYSICIAN: DEBRA JONES Coding ----- --------- Procedures [id number]: Follow-up Ultrasound, per fetus Indication ----- --------- Screening for follow-up survey, History of prior with IUGR, Previous , Insufficient care, Known or suspected damage to fetus by drugs: meth and cocaine, Smoking in . History ----- --------- OB History 2. Para 1 [id number] Maternal Assessment ----- --------- Physical Exam Height 157 cm, 5 ft 2 in. Weight 69 kg, 153 lb. Initial weight 69 kg, 153 lb. BMI 27.98 kg/m . Initial BMI 27.98 kg/m . Weight gain 0 kg, 0 lb Method ----- --------- Transabdominal ultrasound examination. View: Suboptimal view: limited by late gestational age ----- --------- Shepard . Number of fetuses: 1 Dating ----- --------- Previous Ultrasound on: 07/12/2024 Type of prior assessment: GA GA at prior assessment date 31 w + 0 d GA by previous U/S 37 w + 1 d RAMIRO by previous Ultrasound: 09/13/2024 Ultrasound examination on: 08/24/2024 GA by U/S based upon: AC, BPD, Femur, HC GA by U/S 34 w + 5 d RAMIRO by U/S: 09/30/2024 Assigned: based on ultrasound (GA), selected on 07/18/2024 Assigned GA 37 w + 1 d Assigned RAMIRO: 09/13/2024 General Evaluation ----- --------- Cardiac activity Present. FHR 150 bpm. Presentation: cephalic Placenta: Placental site: posterior, away from cervical os Umbilical cord: Cord vessels: 3 vessel cord. Insertion site: not examined Amniotic fluid: Amount of AF: normal amount. MVP 7.6 cm Biometry ----- --------- Standard BPD 79.8 mm 32w 0d <1% Hadlock OFD 111.8 mm 37w 6d 56% Thu HC 305.6 mm 34w 0d <1% Hadlock Cerebellum tr 50.3 mm 36w 5d 45% Hill AC 339.2 mm 37w 6d 81% Hadlock Femur 68.5 mm 35w 1d 9% Hadlock Humerus 60.2 mm 35w 0d 21% Thu HC / AC 0.90 EFW 2,841 g 30% Hadlock EFW (lb) 6 lb EFW (oz) 4 oz EFW by: Hadlock ([id number]) Extended Tibia 58.3 mm 34w 0d 11% Thu Client Service And Consulting Manager 3.0 mm CM 8.0 mm 62% Nicolaides Head / Face / Neck Cephalic index 0.71 <1% Nicolaides Nasal bone: present Extremities / Bony Struc FL / BPD 0.86 FL / HC 0.22 FL / AC 0.20 Other Structures FHR 150 bpm Anatomy ----- --------- The following structures appear normal: Head/Neck: Cranium. Lateral ventricles. Cavum septi pellucidi. Cerebellum. Cisterna magna. Parenchyma. Vermis. Face: Nasal bone. Heart/Thorax: Situs. Cardiac position. Cardiac axis. Cardiac size. Cardiac rhythm. Diaphragm. Abdomen: Abdom. wall. Stomach. Kidneys. Bladder. Extremities/Skeleton: Right upper arm. Right upper leg. Right lower leg. Skeleton The following structures could not be adequately visualized: Face Profile. Heart / Thorax 4-chamber view. Interventricular septum. Great vessels. The following structures could not be examined: Face Maxilla. Mandible. Orbits. Heart / Thorax LVOT view. 3-vessel view. 0-xdbvos-gvzbkul view. Aortic arch view. Bicaval view. Ductal arch view. Abdomen Cord insertion. Spine: Cervical spine. Thoracic spine. Lumbar spine. Sacral spine. The following structures were documented previously: Head / Neck Choroid plexus. Midline falx. Neck. Face Lips. Nose. Heart / Thorax RVOT view. Right lung. Left lung. Abdomen Small bowel. Large bowel. Right renal artery. Left renal artery. Genitals. Extremities / Right forearm. Right hand. Left upper arm. Left forearm. Left hand. Right foot. Left upper leg. Left lower leg. Left foot. Maternal Structures ----- --------- Uterus Visualized Cervix Suboptimal Approach - Transabdominal Right Ovary Not visualized Left Ovary Not visualized Cul de Sac Suboptimal Impression ----- --------- Single viable intrauterine with EFW measuring at the 30%. AC measures at the 81%. Amniotic fluid MVP measures 7.6 cm. The HC measures less than the 3rd percentile for the gestational age but reference biometric measurement within 2 SD of the mean (Paty and colleagues, 1984). Recommendations ----- --------- Please see [facility] recommendations from prior clinical and/or ultrasound report documentation. anatomic survey is incomplete due to late gestational age and suboptimal visualization. Patient is not scheduled to return for additional ultrasound. Please reschedule for specific concerns or indications. Subsequent follow up or other follow up as clinically determined by primary OB provider unless otherwise specified by MFM. Results forwarded to ordering provider so they can follow up with the patient as necessary. Procedure Note Josue Camarillo MD - 08/24/2024 NAME: FELIPA COY : 1990 SEX: F Accession Number: [id number] ORDERING PHYSICIAN: JOSUE CAMARILLO REFERRING PHYSICIAN: DEBRA JONES Coding ----- --------- Procedures [id number]: Follow-up Ultrasound, per fetus Indication ----- --------- Screening for follow-up survey, History of prior with IUGR,Previous , Insufficient care, Known or suspected damage to fetus by drugs: meth and cocaine, Smoking inpregnancy. History ----- --------- OB History 2. Para 1 [id number] Maternal Assessment ----- --------- Physical Exam Height 157 cm, 5 ft 2 in. Weight 69 kg, 153 lb. Initialweight 69 kg, 153 lb. BMI 27.98 kg/m . Initial BMI 27.98 kg/m . Weight gain 0 kg, 0 lb Method ----- --------- Transabdominal ultrasound examination. View: Suboptimal view: limited bylate gestational age ----- --------- Shepard . Number of fetuses: 1 Dating ----- --------- Previous Ultrasound on: 07/12/2024 Type of prior assessment: GA GA at prior assessment date 31 w + 0 d GA by previous U/S 37 w + 1 d RAMIRO by previous Ultrasound: 09/13/2024 Ultrasound examination on: 08/24/2024 GA by U/S based upon: AC, BPD, Femur, HC GA by U/S 34 w + 5 d RAMIRO by U/S: 09/30/2024 Assigned: based on ultrasound (GA), selected on 07/18/2024 Assigned GA 37 w + 1 d Assigned RAMIRO: 09/13/2024 General Evaluation ----- --------- Cardiac activity Present. FHR 150 bpm. Presentation: cephalic Placenta: Placental site: posterior, away from cervical os Umbilical cord: Cord vessels: 3 vessel cord. Insertion site: notexamined Amniotic fluid: Amount of AF: normal amount. MVP 7.6 cm Biometry ----- --------- Standard BPD 79.8 mm 32w 0d <1% Hadlock OFD 111.8 mm 37w 6d 56% Thu HC 305.6 mm 34w 0d <1% Hadlock Cerebellum tr 50.3 mm 36w 5d 45% Kristian AC 339.2 mm 37w 6d 81% Hadlock Femur 68.5 mm 35w 1d 9% Hadlock Humerus 60.2 mm 35w 0d 21% Thu HC / AC 0.90 EFW 2,841 g 30% Hadlock EFW (lb) 6 lb EFW (oz) 4 oz EFW by: Hadlock ([id number]) Extended Tibia 58.3 mm 34w 0d 11% Thu Client Service And Consulting Manager 3.0 mm CM 8.0 mm 62% Nicolaides Head / Face / Neck Cephalic index 0.71 <1% Nicolaides Nasal bone: present Extremities / Bony Struc FL / BPD 0.86 FL / HC 0.22 FL / AC 0.20 Other Structures FHR 150 bpm Anatomy ----- --------- The following structures appear normal: Head/Neck: Cranium. Lateral ventricles. Cavum septi pellucidi. Cerebellum.Cisterna magna. Parenchyma. Vermis. Face: Nasal bone. Heart/Thorax: Situs. Cardiac position. Cardiac axis. Cardiac size. Cardiacrhythm. Diaphragm. Abdomen: Abdom. wall. Stomach. Kidneys. Bladder. Extremities/Skeleton: Right upper arm. Right upper leg. Right lower leg. Skeleton The following structures could not be adequately visualized: Face Profile. Heart / Thorax 4-chamber view. Interventricular septum. Great vessels. The following structures could not be examined: Face Maxilla. Mandible. Orbits. Heart / Thorax LVOT view. 3-vessel view. 8-saxkgz-lnaqzzw view. Aorticarch view. Bicaval view. Ductal arch view. Abdomen Cord insertion. Spine: Cervical spine. Thoracic spine. Lumbar spine. Sacral spine. The following structures were documented previously: Head / Neck Choroid plexus. Midline falx. Neck. Face Lips. Nose. Heart / Thorax RVOT view. Right lung. Left lung. Abdomen Small bowel. Large bowel. Right renal artery. Left renalartery. Genitals. Extremities / Right forearm. Right hand. Left upper arm. Left forearm.Left hand. Right foot. Left upper leg. Left lower leg. Left foot. Maternal Structures ----- --------- Uterus Visualized Cervix Suboptimal Approach - Transabdominal Right Ovary Not visualized Left Ovary Not visualized Cul de Sac Suboptimal Impression ----- --------- Single viable intrauterine with EFW measuring at the 30%. FetalAC measures at the 81%. Amniotic fluid MVP measures 7.6 cm. The HC measures less than the 3rd percentile for the gestational agebut reference biometric measurement within 2 SD of the mean (Paty and colleagues, 1984). Recommendations ----- --------- Please see [facility] recommendations from prior clinical and/or ultrasoundreport documentation. anatomic survey is incomplete due to late gestational age andsuboptimal visualization. Patient is not scheduled to return for additional ultrasound. Please reschedule for specific concerns orindications. Subsequent follow up or other follow up as clinically determined byprimary OB provider unless otherwise specified by [facility]. Results forwarded to ordering provider so they can follow up with thepatient as necessary. us Josue Camarillo MD IMG US ORDERABLES Final Resul t * POCT Nursing Urine Macroscopic UA (07/26/2024 8:58 AM EDT) Specific gravity SARAH 1.020 1.003 - 1.035 07/26/2024 8:57 AM EDT [facility] Leukocyte esterase SARAH Negative Negative^ Negative 07/26/2024 8:57 AM EDT [facility] Nitrite SARAH Negative Negative^ Negative 07/26/2024 8:57 AM EDT [facility] Ph 7.5 5.0 - 8.5 07/26/2024 8:57 AM EDT [facility] Protein SARAH Negative Negative^ Negative mg/dL 07/26/2024 8:57 AM EDT [facility] Urine glucose SARAH Negative Negative^ Negative mg/dL 07/26/2024 8:57 AM EDT [facility] Ketones SARAH Negative Negative^ Negative mg/dL 07/26/2024 8:57 AM EDT [facility] Urobilinogen SARAH 0.2 <1.1 eu/dL 07/26/2024 8:57 AM EDT [facility] Bilirubin SARAH Negative Negative^ Negative 07/26/2024 8:57 AM EDT [facility] Hemoglobin SARAH Negative Negative^ Negative 07/26/2024 8:57 AM [facility] Urine / Unknown 07/26/2024 8 :58 AM EDT 07/26/2024 8:57 AM EDT us Jaron Gaines DO POINT OF CARE TEST ORDERABLES Final Result [facility] [address], [place] [address] * CT cervical spine without contrast (07/26/2024 8:01 AM EDT) Anatomical Region Laterality Modality MSK, Neuro, Spine, C-spine, Spine Covera N/A Computed Tomography 07/26/2024 8:07 AM EDT Narrative 07/26/2024 8:08 AM EDT History: Pain after trauma Technique: Thin axial images through the cervical spine were obtained. The study was supplemented by sagittal and coronal reconstructed images. Automated exposure control was utilized. Comparison: None Findings: The vertebral body heights and disc spaces are well-maintained. The prevertebral soft tissues are within normal limits. The odontoid is intact. There is no evidence for an acute osseous abnormality. Impression: Normal CT cervical spine. Finalized by Florin Andersen MD on 07/26/2024 8:08 AM Procedure Note Florin Andersen MD - 07/26/2024 History: Pain after trauma Technique: Thin axial images through the cervical spine were obtained.The study was supplemented by sagittal and coronal reconstructed images.Automated exposure control was utilized. Comparison: None Findings: The vertebral body heights and disc spaces are well-maintained.The prevertebral soft tissues are within normal limits. The odontoid isintact. There is no evidence for an acute osseous abnormality. Impression: Normal CT cervical spine. Finalized by Florin Andersen MD on 07/26/2024 8:08 AM us Jaron Gaines DO IM CT ORDERABLES Final Resul t * CT brain without contrast (07/26/2024 8:01 AM EDT) Anatomical Region Laterality Modality Neuro, Head, Head and Neck, Neuro Covera N/A Computed Tomography 07/26/2024 8:05 AM EDT Narrative 07/26/2024 8:07 AM EDT History: Pain after trauma Technique: Contiguous axial images through the brain were obtained without the administration of intravenous contrast material. Automated exposure control was utilized. Comparison: None Findings: The ventricles are normal in size. There is no evidence of midline shift. There are no areas of abnormal density to suggest presence of acute major vessel infarct, mass lesion, or hemorrhage. The visualized osseous structures are intact. Impression: Normal CT brain. All CT scans at this facility use dose modulation, iterative reconstruction, and/or weight based dosing when appropriate to reduce radiation dose to as low as reasonably achievable. Finalized by Florin Andersen MD on 07/26/2024 8:07 AM Procedure Note Florin Andersen MD - 07/26/2024 History: Pain after trauma Technique: Contiguous axial images through the brain were obtained withoutthe administration of intravenous contrast material. Automated exposurecontrol was utilized. Comparison: None Findings: The ventricles are normal in size. There is no evidence ofmidline shift. There are no areas of abnormal density to suggest presenceof acute major vessel infarct, mass lesion, or hemorrhage. The visualizedosseous structures are intact. Impression: Normal CT brain. All CT scans at this facility use dose modulation, iterativereconstruction, and/or weight based dosing when appropriate to reduceradiation dose to as low as reasonably achievable. Finalized by Florin Andersen MD on 07/26/2024 8:07 AM us Jaron Gaines DO IMG CT ORDERABLES Final Resul t * Troponin I, High Sensitivity (07/26/2024 7:35 AM EDT) [facility] Troponin I, High Sensitivity 2 <16 ng/L 07/26/2024 8:16 AM EDT [facility] Blood Serum / Unknown 07/26/2024 7 :35 AM EDT 07/26/2024 7:37 AM EDT Jaron Gaines DO LAB BLOOD ORDERABLES Final Re sult [facility] [address], [place] [address] * (ABNORMAL) CBC auto differential (07/26/2024 7:35 AM EDT) Pathologist [facility] [place] White Blood Cells 12.6(H) 4.0 - 11.0 X10E9/L [facility]24 7[facility] RBC count 3.67(L) 3.80 - 5.20 X10E12/L 07/26/2024 7:56 AM [facility] Hemoglobin 11.1(L) 11.7 - 15.5 g/dL 07/26/2024 7:56 AM [facility] Hematocrit 32.2(L) 35 - 47 % 07/26/2024 7:56 AM [facility] MCV 88 80 - 100 fL 07/26/2024 7:56 AM [facility] MCH 30.2 27 - 34 pg 07/26/2024 7:56 AM [facility] MCHC 34.5 32 - 36 g/dL 07/26/2024 7:56 AM [facility] RDW 14.0 11.5 - 15.0 % 07/26/2024 7:56 AM [facility] Platelets 340 150 - 450 X10E9/L 07/26/2024 7:56 AM [facility] MPV 8.0 7 - 12 fL 07/26/2024 7:56 AM [facility] Metamyelocyte 1.0 % 07/26/2024 9:49 AM [facility] Band 10.0 % 07/26/2024 9:49 AM [facility] Seg neutrophil 58.0 % 07/26/2024 9:49 AM [facility] Lymphocyte 25.0 % 07/26/2024 9:49 AM [facility] Monocytes 2.0 % 07/26/2024 9:49 AM [facility] Eosinophil 1.0 % 07/26/2024 9:49 AM [facility] Lymphocyte, atypical 3.0 % 07/26/2024 9:49 AM [facility] Neutrophils Absolute (M) 8.6(H) 1.5 - 6.6 X10E9/L 07/26/2024 9:49 AM [facility] Lymphocytes Absolute 3.5 1.0 - 3.5 X10E9/L 07/26/2024 9:49 AM [facility] Monocytes Absolute 0.3 0 - 0.9 X10E9/L 07/26/2024 9:49 AM [facility] Eosinophils Absolute 0.1 0.0 - 0.4 X10E9/L 07/26/2024 9:49 AM [facility] RBC Morphology REVIEWED 07/26/2024 9:49 AM [facility] Blood Blood / Unknown 07/26/2024 7 :35 AM EDT 07/26/2024 7:37 AM EDT us Jaron Gaines DO LAB BLOOD ORDERABLES Amanda R esult - Final [facility] [address] [facility], [place] [address] * (ABNORMAL) Basic Metabolic Panel (07/26/2024 7:35 AM EDT) Sodium 133(L) 134 - 146 mmol/L 07/26/2024 8:04 AM [facility] Potassium, Bld 3.8 3.5 - 5.0 mmol/L 07/26/2024 8:04 AM [facility] Chloride 108 98 - 109 mmol/L 07/26/2024 8:04 AM [facility] CO2 21(L) 22 - 32 mmol/L 07/26/2024 8:04 AM [facility] Anion gap 4(L) 5 - 15 mmol/L 07/26/2024 8:04 AM [facility] BUN 8 5 - 23 mg/dL 07/26/2024 8:04 AM [facility] Creatinine 0.42 0.40 - 1.00 mg/dL 07/26/2024 8:04 AM [facility] Comment:METHOD TRACEABLE TO IDMS STANDARD Glucose 76 65 - 99 mg/dL 07/26/2024 8:04 AM [facility] Calcium 8.2(L) 8.5 - 10.5 mg/dL 07/26/2024 8:04 AM [facility] eGFR (CKD-EPI)non-ra ce dependent >90 >59 ml/min/1.7 3sq.m 07/26/2024 8:04 AM [facility] Comment: Reported eGFR is based on the CKD-EPI 2020 equation that does not use a race coefficient. Blood (PLASMA) 07/26/2024 7: 35 AM EDT 07/26/2024 7:37 AM EDT us Jaron Gaines DO LAB BLOOD ORDERABLES Final Re sult [facility] [address], [place] [address] * ECG 12 lead (07/26/2024 7:19 AM EDT) 07/26/2024 7:19 AM EDT Narrative TRACEMASTERVUE - 07/26/2024 8:08 AM EDT us Jaron Gaines DO ECG ORDERABLES Final Result PANFILO * Ultrasound transabdominal follow up per fetus (07/12/2024 11:49 AM EDT) Anatomical Region Laterality Modality OB-BARK SCALER Ultrasound 07/12/2024 11:5 3 AM EDT Narrative 07/12/2024 11:56 AM EDT US PREG TRANSABD FU PER FETU: 07/12/2024 11:22 AM Clinical: Second trimester. Check dates and viability. No care. Real-time sonography fetus performed There is a single intrauterine in a cephalic presentation. Cardiac activity: 143 bpm. Cervix is obscured by head. Growth parameters are as follows. BPD- 7.3 cm, 29 week 3 day. Head circumference 28.4 cm, 31 week 1 day. Abdomen circumference 29.2 cm, 33 week 2 day. Femur length 5.8 cm, 30 week 2 day. Average gestational age is 31 weeks 0 day. Estimated weight is 89.8%. Amniotic fluid volume: DELON measures 7.5 cm. The placenta is posterior, away from cervical os. anatomic survey not performed. Maternal Adnexa: No masses seen. Impression: * Single intrauterine cephalic presentation with cardiac activity. * Average gestational age 31 weeks 0 day. * Ultrasound RAMIRO 09/13/2024. * Estimated weight 89.8%. * Borderline low amniotic fluid volume. This is a standard (Level I) ultrasound, which cannot exclude all anomalies with certainty. Finalized by Hebert Badillo MD on 07/12/2024 11:56 AM Procedure Note Hebert Badillo MD - 07/12/2024 US PREG TRANSABD FU PER FETU: 07/12/2024 11:22 AM Clinical: Second trimester. Check dates and viability. No prenatalcare. Real-time sonography fetus performed There is a single intrauterine in a cephalic presentation. Cardiac activity: 143 bpm. Cervix is obscured by head. Growth parameters are as follows. BPD- 7.3 cm, 29 week 3 day. Head circumference 28.4 cm, 31 week 1 day. Abdomen circumference 29.2 cm, 33 week 2 day. Femur length 5.8 cm, 30 week 2 day. Average gestational age is 31 weeks 0 day. Estimated weight is 89.8%. Amniotic fluid volume: DELON measures 7.5 cm. The placenta is posterior, away from cervical os. anatomic survey not performed. Maternal Adnexa: No masses seen. Impression: * Single intrauterine cephalic presentation with cardiacactivity. * Average gestational age 31 weeks 0 day. * Ultrasound RAMIRO 09/13/2024. * Estimated weight 89.8%. * Borderline low amniotic fluid volume. This is a standard (Level I) ultrasound, which cannot exclude allfetal anomalies with certainty. Finalized by Hebert Badillo MD on 07/12/2024 11:56 AM Debra Jones APRN-FLAT OPTICAL ELEMENT MAKER [facility] [place] ORDERABLES Final Result * (ABNORMAL) POCT , urine (06/28/2024 2:17 PM EST) External Poct Urine Positive MANUALLY TRANSCRIBED RESULTS Internal School Lunch Manager Check Completed and Passed Yes MANUALLY TRANSCRIBED RESULTS Urine 06/28/2024 2:17 PM EST Debra Jones TRACK LAYING EQUIPMENT OPERATOR-FLAT OPTICAL ELEMENT MAKER POINT OF CARE TEST ORDER KISHA Final Result MANUALLY TRANSCRIBED RESULTS * HIV 1&2 AB/AG Screen (P24 AG) (06/28/2024 1:30 PM EST) Pathologist [facility] [place] HIV 1&2 AB/AG Non-React erica Non-React erica^Non-R eactive 06/28/2024 8:12 PM EST [facility] Comment: NEW TEST METHOD NOTE This information has been disclosed to you from confidential records protected from disclosure by state law. You shall make no further disclosure of this information without the specific, written and informed release of the individual to whom it pertains, or as otherwise permitted by state law. A general authorization for the release of medical or other information is not sufficient for the purpose of the release of HIV test results or diagnoses. Serum / Unknown 06/28/2024 1 :30 PM EST 06/28/2024 1:41 PM EST Debra Jones TRACK LAYING EQUIPMENT OPERATORVIB[facility] LAB BLOOD ORDERABLES Fin al Result Performing Organization Address [facility] de Phone Number [facility] [address] [place] [address] * Rubella IGG immune status (06/28/2024 1:30 PM EST) [facility] Rubella immune IgG 4.0 AI 06/28/2024 8:14 PM EST [facility] Comment: Interpretation-------- <0.8 NEGATIVE-considered Not Immune 0.8-0.9 EQUIVOCAL-consider retesting with new specimen >0.9 POSITIVE-considered Immune Serum / Unknown 06/28/2024 1 :30 PM EST 06/28/2024 1:41 PM EST Debra Jones TRACK LAYING EQUIPMENT OPERATORVIBRA [facility] LAB BLOOD ORDERABLES Fin al Result Performing Organization Address [facility] Co de Phone Number [facility] [address] [place] [address], [facility] [address] [place] [address] * Glucose 1h post 50g load (06/28/2024 1:30 PM EST) Pathologist [facility] [place] Glucose, 1Hr PP 93 65 - 139 mg/dL 06/28/2024 6:31 PM [facility] PLASMA 06/28/2024 1:30 PM EST 06/28/2024 1:41 PM EST Debra Jones TRACK LAYING EQUIPMENT OPERATOR-[facility] LAB BLOOD ORDERABLES Fin al Result [facility] [address], [address] [place] [address] * (ABNORMAL) Hepatitis panel, acute (06/28/2024 1:30 PM EST) [facility] Hepatitis B Surface Ag Non-Reacti ve Non-Reacti ve^Non-[place] ctive 06/28/2024 8:13 PM [facility] Comment:NEW TEST METHOD Hep B Core IgM Ab Non-Reacti ve Non-Reacti ve^Non-[place] ctive 06/28/2024 8:12 PM [facility] Comment:NEW TEST METHOD Hep A IgM Ab Non-Reacti ve Non-Reacti ve^Non-[place] ctive 06/28/2024 8:12 PM [facility] Comment:NEW TEST METHOD Anti HCV w/ PCR reflex Reactive(A ) Non-Reacti ve^Non-[place] ctive 06/28/2024 9:16 PM [facility] Comment: Supplemental testing for HCV RNA by PCR has been ordered per CDC recommendations. Mapyfr-sh-shtyiw ratio is >=1.00. NEW TEST METHOD MIS 06/28/2024 1:30 PM EST 06/28/2024 1:41 PM EST Comment:Blood specimen from patient~Serum specimen Debra Jones TRACK LAYING EQUIPMENT OPERATOR-FLAT OPTICAL ELEMENT MAKER LAB BLOOD ORDERABLES Miky tono Result - Final [facility] [address], [address] [place] [address] * (ABNORMAL) Varicella zoster antibody, IgG (06/28/2024 1:30 PM EST) Varicella IgG 4.3(H) <0.9 AI 06/28/2024 8:14 PM EST [facility] Comment: Interpretation-------- <0.9 Negative 0.9 - 1.0 Equivocal >1.0 Positive Serum / Unknown 06/28/2024 1 :30 PM EST 06/28/2024 1:41 PM EST us Debra Jones TRACK LAYING EQUIPMENT OPERATOR-FLAT OPTICAL ELEMENT MAKER LAB BLOOD ORDERABLES Fin al Result SUN[facility] [address], [address] [place] [address] * HCG, Quantitative, (06/28/2024 1:30 PM EST) Hcg-beta, serum 16,703 mIU/mL 6:48 PM EST [facility] Comment: NEW REFERENCE RANGE WEEKS (SINCE LMP) MIU/mL 3 WEEKS 5 - 50 4 WEEKS 5 - 426 5 WEEKS 18 - 7,340 6 WEEKS 1,080 - 56,500 7-8 WEEKS 7,650 - 229,000 9-12 WEEKS 25,700 - 288,000 13-16 WEEKS 13,300 - 254,000 17-24 WEEKS 4,060 - 165,400 25-40 WEEKS 3,640 - 117,000 MALES AND NON- FEMALES - <5 MIU/mL This test has been FDA approved for use in only. Elevated levels are not necessarily diagnostic for trophoblastic or nontrophoblastic neoplasms. PLASMA 06/28/2024 1:30 PM EST 06/28/2024 1:41 PM EST us Debra Jones TRACK LAYING EQUIPMENT OPERATOR-FLAT OPTICAL ELEMENT MAKER LAB BLOOD ORDERABLES Fin al Result ARABELLA [facility] [address] [place] [address] * (ABNORMAL) Urinalysis (06/28/2024 11:48 AM EST) Color YELLOW YELLOW^YE LLOW 06/29/2024 12:15 AM [facility] Turbidity HAZY(A) CLEAR^BASIL AR 06/29/2024 12:15 AM [facility] Specific gravity 1.011 1.003 - 1.035 06/29/2024 12:15 AM [facility] Nitrite Negative Negative^ Negative 06/29/2024 12:15 AM [facility] Ph urine 7.5 5.0 - 8.5 06/29/2024 12:15 AM [facility] Leukocyte esterase Trace(A) Negative^ Negative 06/29/2024 12:15 AM [facility] Protein Negative Negative^ Negative mg/dL 06/29/2024 12:15 AM [facility] Glucose, Ur Negative Negative^ Negative mg/dL 06/29/2024 12:15 AM [facility] Ketones urine Negative Negative^ Negative mg/dL 06/29/2024 12:15 AM [facility] Urobilinogen <1.1 <1.1 eu/dL 06/29/2024 12:15 AM [facility] Bilirubin, urine Negative Negative^ Negative 06/29/2024 12:15 AM [facility] Hemoglobin Negative Negative^ Negative 06/29/2024 12:15 AM [facility] Mucus, UA PRESENT(A) NONE^NONE 06/29/2024 12:15 AM [facility] RBC <1 0 - 5 /hpf 06/29/2024 12:15 AM [facility] Squamous epithelium 27(H) 0 - 5 /hpf 06/29/2024 12:15 AM [facility] WBC 2 0 - 5 /hpf 06/29/2024 12:15 AM [facility] Urine / Unknown 06/28/2024 1 1:48 AM EST 06/28/2024 11:50 PM EST us Debra Jones TRACK LAYING EQUIPMENT OPERATOR-FLAT OPTICAL ELEMENT MAKER URINE ORDERABLES Final R esult Performing Organization Address City/[facility]/ZIP Co de Phone Number [facility] [address] [place] [address], [address] [place] [address] * Urine Culture (06/28/2024 11:48 AM EST) Culture 10-50,000 ORGANISMS/mL NORMAL UROGENITAL NATHAN 06/29/2024 6:45 PM [facility] Urine Urine / Unknown 06/28/2024 1 1:48 AM EST 06/28/2024 11:49 PM EST us Debra Jones TRACK LAYING EQUIPMENT OPERATOR-FLAT OPTICAL ELEMENT MAKER MICROBIOLOGY - GENERAL O RDERABLES Final Result Performing Organization Address City/[facility] Co de Phone Number [facility] [address] [place] [address], [address] [place] [address] * Chlamydia/Gonorrhoeae by PCR, Fluid (06/28/2024 4:09 AM EST) Chlamydia by PCR, Fluid Negative Negative^N egative 06/29/2024 1:01 PM [facility] Comment: Chlamydia trachomatis not detected by nucleic acid amplification. This does not exclude the possibility of infection because results are dependent on adequate specimen collection. Gonorrhoeae by PCR, Fluid Negative Negative^N egative 06/29/2024 1:01 PM [facility] Comment: Neisseria gonorrhoeae not detected by nucleic acid amplification. This does not exclude the possibility of infection because results are dependent on adequate specimen collection. THINP 06/28/2024 4:09 AM EST 06/28/2024 4:26 AM EST us Debra Jones TRACK LAYING EQUIPMENT OPERATOR-FLAT OPTICAL ELEMENT MAKER MICROBIOLOGY - GENERAL O RDERABLES Final Result ARABELLA [facility] [address] [place] [address], [address] [place] [address] * Pap Smear (06/28/2024 4:09 AM EST) 06/28/2024 4:09 AM EST 06/28/2024 4:26 AM EST Narrative COPATH - 07/13/2024 3:47 PM EDT [facility] [address] [place] [address] Gynecologic Cytology Consultation Patient Name:ZBIGNIEW JOHNSON:1990 (Age: 34)Gender:FTaken:06/28/2024Reported:07/13/2024Physician(s):Debra Jones, VENKATA- [place] ([phone])Copy To: Rec. #:[id number]: #[id number] Final Cytologic Interpretation ThinPrep Pap Test (Cervical): Satisfactory for evaluation. A transformation zone component is not identified via imaging-assisted review, using [employer] Thin Prep Imaging System, within 22 microscopic quinones of view. NEGATIVE FOR INTRAEPITHELIAL LESION OR MALIGNANCY. [facility]/07/13/2024 Interpretation [place] [address], License number: [id number]. Electronically Signed Out By MANUEL Vital(ASCP) Date of Last Menstrual Period: (None Given) Other Clinical Conditions: Z34.92 Z01.419 Front End Manager exam wo/abn findings Source of Specimen ThinPrep Pap Test (Cervical) Thin Prep Pap (BARK SCALER) Fee Code(s): G0145 The Pap test is a screening test with an inherent, but low, probability of error. The Pap test is primarily effective for the diagnosis and prevention of squamous cell carcinoma. Regular screening is critical for prevention. ThinPrep liquid-based slides, which meet the Cloth Pattern Maker criteria for automated screening, have been screened by the ThinPrep Imaging System (as of 01/09/07) along with an additional manual rescreening by a laborer operator and, if indicated, by a pathologist. us Debra Jones TRACK LAYING EQUIPMENT OPERATOR-FLAT OPTICAL ELEMENT MAKER PATHOLOGY/CYTOLOGY ORDER KISHA Final Result COPATH * High risk HPV w/paola (06/28/2024 4:09 AM EST) Hpv specimen type ThinPrep 06/29/2024 4:10 AM EST [facility] Hpv 16 Negative Negative^N egative 06/29/2024 1:51 PM EST [facility] Hpv 18 Negative Negative^N egative 06/29/2024 1:51 PM EST [facility] Other high risk hpv Negative Negative^N egative 06/29/2024 1:51 PM EST [facility] Comment: HPV types 31,33,35,39,45,52,56,58,59,66 and 68 DNA were undetectable. THINP 06/28/2024 4:09 AM EST 06/28/2024 4:26 AM EST us Debra Jones TRACK LAYING EQUIPMENT OPERATOR-FLAT OPTICAL ELEMENT MAKER LAB BLOOD ORDERABLES Fin al Result Performing Organization Address City/[facility]/ZIP Co de Phone Number [facility] [address], [place] [address] [facility] [address] [place] [address] from Last 3 Months Insurance [facility] MEDICAID [facility] MEDICAID Advance Directives * Full Code (Latest Code Status on File) Date Activated Date Inactivated Comments 09/07/2024 11:27 AM 09/10/2024 7:18 PM Care Teams Wood Gluer Relationship Specialty Start Date End Date Florin Vazquez DO [address] [place] [id number] PCP - General Family Medicine 07/26/24
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
--- OUTSIDE RECORDS SUMMARY | 2024-09-28 13:50 | XMS_ITS | Encounter Summary ---
Author Organization [employer] Address [id number] [address] [place] [address] Care Team Providers Care Drawbench Operator Helper Name Role Phone Florin Vazquez DO Primary Care Provider [phone] Encounter Details Date Type Department Care Team (Late st Contact Info) Description 09/19/2024 Telephone [facility] [address] [place] [address] Paola Desai MA Social History Tobacco Use Types Packs/Day Years Used Date Smoking Tobacco: Former Cigarettes Q uit: 05/30/2024 Smokeless Tobacco: Never Alcohol Use Standard Drinks/Week Comments Not Currently 0 (1 standard drink = 0.6 oz pur e alcohol) [facility] Utilities Answer Date Recorded In the [...] week 09/07/2024 How often do you attend rastafarian or pentecostal serv ices? Never 09/07/2024 Do you belong to any clubs o r organizations such as rastafarian groups, unions, fraternal or athletic groups, or [...] Answer Date Recorded Total Score 0 09/07/2024 [facility] [place] of Occupat ional Health - Occupational Stress [...] things needed for daily living? No 09/07/2024 [place] Depression Scale Answer Date Recorded [place] Depression Scale Total 3 09/20/2024 The thought [...] Recorded Do you need help finding a [facility] career center and/or a training program? No [...] on file documented as of this encounter Miscellaneous Notes * Telephone Encounter - Paola Desai MA - 09/19/2024 8:17 AM EDT Pt mother called inquiring about pt's placental histology & surgical pathology results. Repeat was done one 09/07/24. Results are still in process. Pt mom would like to know results LEONEL. - Paola Desai MA 09/19/24 8:19 AM documented in this encounter Plan of Treatment Upcoming Encounters Date Type Department Care Team (Late st Contact Info) Description 10/18/2024 1:15 PM EDT Visit [facility] [address] [place] [phone] Lorna Murray, WOOD FILLER-MANUFACTURING LEAD [address] [place] [address] documented as of this encounter Visit Diagnoses Not on filedocumented in this encounter Additional Health Concerns Assessment Noted Time PHQ-9 Depression Total Score: 0 09/08/19 11:42 AM EDT documented as of this encounter Care Teams Drawbench Operator Helper Relationship Specialty Start Date End Date Florin Vazquez DO [address] [place] [address] [place] [address] PCP - General Family Medicine 07/26/24 documented as of this encounter
[2024-09-28 14:27] LABS: Basophils Absolute Auto 0.1 10^3/uL (0.0-0.1); Basophils Percent Auto 1.4 % (0.2-2.0); Eosinophils Absolute Auto 0.4 10^3/uL (0.0-0.7); Eosinophils Percent Auto 5.4 % (0.9-7.0); Hematocrit 37.1 % (36.0-48.0); Hemoglobin 12.1 g/dL (12.0-16.0); Immature Granulocytes Abs Auto 0.02 10^3/uL (0.00-0.03); Immature Granulocytes Pct Auto 0.3 % (0.0-0.5); Lymphocytes Absolute Auto 2.2 10^3/uL (1.2-3.8); Lymphocytes Percent Auto 31.2 % (20.5-60.0); Mean Corpuscular HGB Conc 32.6 g/dL (29.9-35.2); Mean Corpuscular Hemoglobin 28.9 pg (26.7-34.0); Mean Corpuscular Volume 88.5 fL (81.0-99.0); Mean Platelet Volume 9.4 fL (9.5-13.5); Monocytes Absolute Auto 0.5 10^3/uL (0.3-0.8); Monocytes Percent Auto 7.6 % (1.7-12.0); Neutrophils Absolute Auto 3.8 10^3/uL (1.4-6.5); Neutrophils Percent Auto 54.1 % (43.0-75.0); Platelet Count 529 10^3/uL (150-450); Red Blood Count 4.19 10^6/uL (4.20-5.40); Red Cell Distribution Width 12.7 % (11.0-15.0); White Blood Count 7.1 10^3/uL (4.0-11.0)
[2024-09-28 15:23] LABS: Percent Iron Saturation 6.4 %
[2024-09-28 15:35] LABS: Alanine Aminotransferase 18 U/L (14-59); Albumin Globulin Ratio 0.9; Albumin Level 3.5 g/dL (3.4-5.0); Alkaline Phosphatase 121 U/L (46-116); Anion Gap 9.3; Aspartate Amino Transferase 14 U/L (15-37); BUN Creatinine Ratio 18.5; Bilirubin Total 0.2 mg/dL (0.2-1.0); Calcium 9.5 mg/dL (8.5-10.1); Carbon Dioxide 31.2 mmol/L (21.0-32.0); Chloride 102 mmol/L (98-107); Estimated GFR (African America >60 (>=60 mL/min/1.73m^2); Estimated GFR (Non-African Ame >60 (>=60 mL/min/1.73m^2); Glucose 76 mg/dL (74-106); Potassium 4.5 mmol/L (3.5-5.1); Sodium 138 mmol/L (136-145); Thyroid Stimulating Hormone 2.516 uIU/mL (0.358-3.740); Total Protein 7.5 g/dL (6.4-8.2)
== END 2024-09-28 13:47 | disposition home or self-care (01) ==
LOC: LAB 13:48
PROVIDERS: PCP Family Medicine; Visit Provider Family Medicine
DX: D64.9 Anemia, unspecified (principal); R63.5 Abnormal weight gain
CPT/HCPCS: 36415; 80053; 82728; 83540; 83550; 84443; 85025

== ENCOUNTER 2025-01-01 16:52 | Outpatient (OUT) | payer OTHER, SELFPAY ==
--- OUTSIDE RECORDS SUMMARY | 2008-06-03 04:30 | XMS_ITS | Continuity of Care Document ---
Author Organization [facility] Address [address] [place] [address] Phone Care Team Providers Care Tiller Worker Name Role Phone Unavailable Unavailable Unavailable Procedures Procedure Date OFFICE/OUTPATIENT VISIT, EST URINE TEST OFFICE/OUTPATIENT VISIT, EST URINE TEST Advance Directives Directive Yes / No Effective Date File Name No Information Encounters Encounter Description Practice Location Reason(s) For Visit Diagnoses Date Provider Providers Copied on Encounter OFFICE/OUTPAT IENT VISIT, EST [facility], [address] [place], [place], [id number], [place] tel:[phone] [facility] No Information No Information Family History Family Member Type Diagnosis Age At Onset No Information Payers Payer name Insurance type Covered republican ID Authoriza tion(s) No Information Social History [...]
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
--- OUTSIDE RECORDS SUMMARY | 2025-01-01 16:56 | XMS_ITS | Encounter Summary ---
Author Organization [employer] Address [id number] [address] [place] [address] Care Team Providers Care Stretch Box Tender Name Role Phone Florin Vazquez DO Primary Care Provider [phone] Encounter Details Date Type Department Care Team (Late st Contact Info) Description 07/03/2020 Orders Only [facility] Family Medicine [address] [place] [phone] Bertha Gusman, CANINE ENFORCEMENT OFFICER-DIRECTOR OF VOLUNTEER SERVICES [address] [place] [address] Social History Tobacco Use Types Packs/Day Years [...] as of this encounter Plan of Treatment Not on file documented as of this encounter Visit Diagnoses Not on filedocumented in this encounter Care Teams Stretch Box Tender Relationship Specialty Start Date End Date Florin Vazquez DO [address] [place] [address] [place] [address] PCP - General Family Medicine 07/26/24 documented as of this encounter
--- OUTSIDE RECORDS SUMMARY | 2025-01-01 16:56 | XMS_ITS | Clinical Summary ---
Author Organization [employer] [facility] Address [id number] [address] [place] [address] Care Team Providers Care Auto Body Mechanic Name Role Phone Florin Vazquez DO Primary Care Provider [phone] Allergies No known active allergies Medications ferrous sulfate 325 (65 FE) MG tabletIndicatio ns:Anemia, Take 1 tablet (325 mg total) by mouth in the morning and 1 tablet (325 mg total) in the evening. Take with meals. 60 tablet Active Additional Information Patient not taking.Reported on 11/02/2024 traMADoL (ULTRAM) 50 mg tablet Take 1 tablet (50 mg total) by mouth every 6 (six) hours as needed for pain. Active PNV no.95/ferrous fum/folic ac ( ORAL) Take 1 tablet by mouth in the morning. Active Active Problems Problem Noted Date Diagnosed Date Status post bilateral salpingectomy 09/14/2024 Resolved Problems Problem Noted Date Diagnosed Date Resolved Date Syncope 07/26/2024 09/14/2024 Overview (07/26/2024): Pt incarcerated. Fell and hit head on concrete Hepatitis C virus infection in mother during 07/12/2024 09/10/2024 History of illicit drug use 06/28/2024 09/10/2024 Overview (06/28/2024): Meth, stopped in May 2024 when incarcerated. Encounters Date Type Department Care Team Description 11/02/2024 8:30 AM EDT Visit [facility] [address] [place] [address] Debra Nazario, VEGETABLE INSPECTOR-UKE OPERATOR care and examination (Primary Dx) 11/02/2024 Travel from Last 3 Months Immunizations Immunization Administration Dates Next Due DTP 1990,1990,1990 DTaP 12/28/1995,01/17/1992 HiB 09/06/1991,02/01/1991,1990 ,1990 MMR 12/28/1995,09/06/1991 OPV 12/28/1995,01/17/1992,1990 ,1990 Family History Medical History Relation Name Comments Breast cancer Maternal Grandmother Colon cancer Neg Hx Ovarian cancer Neg Hx Uterine cancer Neg Hx Relation Name Status Comments Maternal Grandmother Social History Tobacco Use Types Packs/Day Years Used Date Smoking Tobacco: Former Cigarettes Q uit: 05/30/2024 Smokeless Tobacco: Never Tobacco Cessation:Counseling Given: Not Answered Alcohol Use Standard Drinks/Week Comments Not Currently 0 (1 standard drink = 0.6 oz pur e alcohol) [employer] Answer Date Recorded In the past 12 months has [employer] electric, gas, oil, or water [employer] threatened to shut off services in your [...] How often do you attend holiness or tenriism serv ices? Never 09/07/2024 Do you belong [...] Answer Date Recorded Total Score 0 09/07/2024 [facility] - Occupational [...] things needed for daily living? No 09/07/2024 Palmer Depression Scale Answer Date Recorded Palmer Depression Scale Total 0 11/02/2024 The thought of harming myself has occurred to me . Never 11/02/2024 Housing Instability Answer Date Recorde d Are [...] Recorded Do you need help finding a [facility] career [facility] and/or a training program? No 09/07/2024 Hunger Screening Answer Date Recorded Within the past 12 months we worried whether our food would run out before we got money to buy more. Never True 11/02/2024 Within the past 12 months th e food we bought just didn't last and we didn't have money to get more. Never True 11/02/2024 Purpose - Life Answer Date Recorded I have a purpose and direction in my life. Agree 09/07/2024 Comments No Sex and Gender Information Value Date Recorded Sex Assigned at Not on file Legal Sex Female 1:57 PM EST Gender Identity Not on file Sexual Orientation Not on file Last Filed Vital Signs Vital Sign Reading Time Taken Comments Blood Pressure 114/56 11/02/2024 8:40 AM EDT Pulse 79 09/10/2024 1:22 PM EDT Temperature 36.7 C (98 F) 09/10/2024 1:22 PM EDT Respiratory Rate 16 09/10/2024 1:22 PM EDT Oxygen Saturation 100% 09/08/2024 8:12 PM EDT Inhaled Oxygen Concentration - - Weight 62.1 kg (136 lb 12.8 oz) 11/02/2024 8:40 AM EDT Height 162.6 cm (5' 4 ) 11/02/2024 8:40 AM EDT Body Mass Index 23.48 11/02/2024 8:40 AM EDT Plan of Treatment Health Maintenance Due Date Last Done Comments DTaP,Tdap and Td Vaccines (6 - Tdap) 2001 12/28/1995, 01/17/1992, 1990, Additional history exists Influenza Vaccine 12/24/2024 Adult BMI Screening 11/02/2025 11/02/2024 Depression Screening 11/02/2025 11/02/2024, 09/08/19 25 Tobacco Screening 11/02/2025 11/02/2024 Pap Smear 06/29/2027 06/28/2024, 06/28/2024 Medical Devices Not on file Procedures Procedure Name Priority Date/Time Associated Diagnosis Comments HIGH RISK HPV W/ALLEN Routine 06/28/2024 4:09 AM EST Second trimester Cervical smear, as part of routine gynecological examination from Last 3 Months or Most Recently Relevant to Health Maintenance Results * High risk HPV w/allen (06/28/2024 4:09 AM EST) Hpv specimen type ThinPrep 06/29/2024 4:10 AM EST [facility] Hpv 16 Negative Negative^N egative 06/29/2024 1:51 PM EST [facility] Hpv 18 Negative Negative^N egative 06/29/2024 1:51 PM EST [facility] Other high risk hpv Negative Negative^N egative 06/29/2024 1:51 PM EST [facility] Comment: HPV types 31,33,35,39,45,52,56,58,59,66 and 68 DNA were undetectable. THINP 06/28/2024 4:09 AM EST 06/28/2024 4:26 AM EST us Debra Nazario VEGETABLE INSPECTOR-UKE OPERATOR LAB BLOOD ORDERABLES Fin al Result [facility] [address] [facility], [place] [address] [facility] [address] [place] [address], [address] [place] [address] from Last 3 Months or Most Recently Relevant to Health Maintenance Insurance [facility] MEDICAID [facility] PL[employer] MEDICAID * Guarantor: LUPILLO MCCOY Account Type Relation to Patient Date of Phone Billing Address Corporate Other [facility]ly [facility], [id number] [place] [address] Advance Directives * Full Code (Latest Code Status on File) Date Activated Date Inactivated Comments 09/07/2024 11:27 AM 09/10/2024 7:18 PM Care Teams Auto Body Mechanic Relationship Specialty Start Date End Date Florin Vazquez DO [address] [address] PCP - General Family Medicine 07/26/24
--- OUTSIDE RECORDS SUMMARY | 2025-01-01 16:56 | XMS_ITS | Encounter Summary ---
Author Organization [employer] [facility] [employer] Address [id number] [address] [place] [address] Care Team Providers Care Residential Life Director Name Role Phone Florin Vazquez DO Primary Care Provider [phone] Encounter Details Date Type Department Care Team (Late st Contact Info) Description 09/19/2024 Telephone [facility] [address] [place] [address] Paola Desai MA Social History Tobacco Use Types Packs/Day Years Used Date Smoking Tobacco: Former Cigarettes Q uit: 05/30/2024 Smokeless Tobacco: Never Alcohol Use Standard Drinks/Week Comments Not Currently 0 (1 standard drink = 0.6 oz pur e alcohol) [facility] Utilities Answer Date Recorded In the [...] week 09/07/2024 How often do you attend mandaen or synagogue serv ices? Never 09/07/2024 Do you belong to any clubs o r organizations such as mandaen groups, unions, fraternal or athletic groups, or [...] Answer Date Recorded Total Score 0 09/07/2024 [facility] - Occupational Stress [...] things needed for daily living? No 09/07/2024 [place] Depression Scale Answer Date Recorded [place] Depression Scale Total 3 09/20/2024 The thought [...] Recorded Do you need help finding a [employer] [facility] [employer] career center and/or a training program? No [...] documented in this encounter Plan of Treatment Not on file documented as of this encounter Visit Diagnoses Not on filedocumented in this encounter Additional Health Concerns Assessment Noted Time PHQ-9 Depression Total Score: 0 09/08/19 11:42 AM EDT documented as of this encounter Care Teams Residential Life Director Relationship Specialty Start Date End Date Florin Vazquez DO [facility] [address] [place] [address] [place] [address] PCP - General Family Medicine 07/26/24 documented as of this encounter
[2025-01-01 17:39] LABS: Hematocrit 38.2 % (36.0-48.0); Hemoglobin 12.8 g/dL (12.0-16.0); Immature Granulocytes Abs Auto 0.01 10^3/uL (0.00-0.03); Immature Granulocytes Pct Auto 0.2 % (0.0-0.5); Lymphocytes Absolute Auto 1.9 10^3/uL (1.2-3.8); Mean Corpuscular HGB Conc 33.5 g/dL (29.9-35.2); Mean Corpuscular Hemoglobin 27.3 pg (26.7-34.0); Mean Corpuscular Volume 81.4 fL (81.0-99.0); Platelet Count 328 10^3/uL (150-450); Red Blood Count 4.69 10^6/uL (4.20-5.40); White Blood Count 5.6 10^3/uL (4.0-11.0)
[2025-01-01 18:15] LABS: Iron 78.0 ug/dL (50.0-170.0); Percent Iron Saturation 23.2 %; Total Iron Binding Capacity 336.0 ug/dL (250.0-450.0)
[2025-01-01 18:30] LABS: Ferritin 19.0 ng/mL (8.0-252.0)
== END 2025-01-01 16:53 | disposition home or self-care (01) ==
PROVIDERS: PCP Family Medicine; Visit Provider Family Medicine
DX: D64.9 Anemia, unspecified (principal); Z79.899 Other long term (current) drug therapy; D50.9 Iron deficiency anemia, unspecified
CPT/HCPCS: 36415; 82728; 83540; 83550; 85025